=== PATIENT | female | born 1995 | race Caucasian/White ===

== ENCOUNTER 2024-04-20 07:09 | Outpatient (CLI) | payer OTHER, SELFPAY ==
--- NOTE | 2024-04-20 07:15 | CRLHL7_ITS ---
For Patients: As a result of the Century Cures Act, medical imaging exams and procedure reports are released immediately into your electronic medical record. You may view this report before your referring provider. If you have questions, please contact your health care provider. INDICATION: Dating and viability. TECHNIQUE: Ultrasound OB pelvis transabdominal and transvaginal. Real-time rodriguez-scale imaging of the pelvis was performed. COMPARISON: None. FINDINGS: There is a single intrauterine gestation. The embryo demonstrates a regular cardiac rate measuring 161 beats per minute. The embryo`s crown rump length measurement of 1.6 cm corresponds to a gestational age of 8 weeks 0 days with a sonographic due date of 11/30/2024. There is a normal appearing yolk sac. There are no gross abnormalities noted within the embryo at this early state of development. The placenta has not yet developed. There is no sign of perigestational hemorrhage. The ovaries are of normal size. There are no suspicious fluid collections noted in the cul-de-sac. IMPRESSION: Single viable intrauterine with gestational age of 8 weeks 0 days. No abnormalities seen. Dictated by Edenilson Palacios MD @ 04/20/2024 12:53:15 PM (Electronically Signed)
== END 2024-04-20 07:10 | disposition home or self-care (01) ==
PROVIDERS: Visit Provider Registered Nurse
DX: Z34.91 Encounter for supervision of normal pregnancy, unspecified, first trimester (principal); Z3A.08 8 weeks gestation of pregnancy
CPT/HCPCS: 76817

== ENCOUNTER 2024-04-20 08:07 | Outpatient (CLI) | payer OTHER, SELFPAY ==
[2024-04-20 12:59] LABS: Chlamydia DNA Amplified* NOT DETECTED (No Detected); GC DNA Amplified* NOT DETECTED (No Detected)
== END 2024-04-20 08:08 | disposition home or self-care (01) ==
PROVIDERS: Visit Provider Registered Nurse
DX: Z34.91 Encounter for supervision of normal pregnancy, unspecified, first trimester (principal); O16.1 Unspecified maternal hypertension, first trimester; Z3A.08 8 weeks gestation of pregnancy
CPT/HCPCS: 82565; 82570; 84156; 84439; 84443; 84450; 84460; 84520; 86592; 86703; 86704; 86706; 86762; 86787; 86803; 86850; 86900; 86901; 87086; 87340; 87491; 87591

== ENCOUNTER 2024-04-24 06:45 | Outpatient (CLI) | payer OTHER, SELFPAY | END 2024-04-24 06:46 | disposition home or self-care (01) | LOC: NFLDREF 04-26 13:37 | PROVIDERS: Visit Provider Registered Nurse | DX: Z34.91 Encounter for supervision of normal pregnancy, unspecified, first trimester (principal); Z3A.08 8 weeks gestation of pregnancy | CPT/HCPCS: 82570; 84156 ==

== ENCOUNTER 2024-06-19 13:58 | Outpatient (CLI) | payer OTHER, SELFPAY | END 2024-06-19 13:59 | disposition home or self-care (01) | PROVIDERS: PCP Obstetrics & Gynecology; Visit Provider Obstetrics & Gynecology | DX: O99.282 Endocrine, nutritional and metabolic diseases complicating pregnancy, second trimester (principal); E05.00 Thyrotoxicosis with diffuse goiter without thyrotoxic crisis or storm | CPT/HCPCS: 84439; 84443; 84445; 84481 ==

== ENCOUNTER 2024-09-10 13:52 | Outpatient (CLI) | payer OTHER, SELFPAY ==
--- NOTE | 2024-09-10 14:00 | CRLHL7_ITS ---
For Patients: As a result of the Cures Act, medical imaging exams and procedure reports are released immediately into your electronic medical record. You may view this report before your referring provider. If you have questions, please contact your health care provider. OB ULTRASOUND FOLLOW-UP LIMITED, 09/10/2024 CLINICAL HISTORY: Thyrotoxicosis. TECHNIQUE: OB ultrasound performed transabdominally . COMPARISON: 07/25/2024, 07/03/2024. FINDINGS: LINDA by US: 11/30/2024. GA: 28 weeks 3 days. Gestation: Single. Cervix: Not visualized. Positioning: Breech. Amniotic Fluid: 4.0 cm SDP. Placenta: Technique: TA. Placenta Position: Anterior. Dopplers: Heart Rate: 149 bpm. BIOMETRY: BDP: 6.8 cm, 27 weeks 4 days. 13% HC: 26.0 cm, 28 weeks 2 days. 16% AC: 23.9 cm, 28 weeks 2 days. 36% FL: 5.1 cm, 27 weeks 2 days. 10% FL/AC Ratio: 21.26% HC/AC Ratio: 1.09. EFW: 1139 grams, 2 lb 8 oz. Age by this US: 27 weeks 6 days. LINDA by this US: 12/04/2024. Percentile by LINDA: 19% IMPRESSION: Single live intrauterine gestation at 27 weeks 6 days. LINDA 12/04/2024. Estimated weight 1139 grams which lies at the 19th percentile. Angella Najera M.D. Diagnostic/Breast Radiologist [email or web address] Transcribed: 1:39 pm DW/Dictated by: Angella Najera MD @ 09/11/2024 1:21:00 PM (Electronically Signed)
== END 2024-09-10 13:53 | disposition home or self-care (01) ==
LOC: US 13:53
PROVIDERS: Visit Provider Obstetrics & Gynecology
DX: O99.283 Endocrine, nutritional and metabolic diseases complicating pregnancy, third trimester (principal); E05.00 Thyrotoxicosis with diffuse goiter without thyrotoxic crisis or storm; Z3A.28 28 weeks gestation of pregnancy
CPT/HCPCS: 76816; 84443; 86592

== ENCOUNTER 2024-09-10 14:22 | Outpatient (CLI) | payer OTHER, SELFPAY | END 2024-09-10 14:23 | disposition home or self-care (01) | PROVIDERS: Visit Provider Obstetrics & Gynecology | DX: Z34.03 Encounter for supervision of normal first pregnancy, third trimester (principal) | CPT/HCPCS: 84443; 86592 ==

== ENCOUNTER 2024-09-14 08:00 | Outpatient (CLI) | payer OTHER, SELFPAY | END 2024-09-14 08:01 | disposition home or self-care (01) | PROVIDERS: Visit Provider Obstetrics & Gynecology | DX: Z34.03 Encounter for supervision of normal first pregnancy, third trimester (principal); E05.00 Thyrotoxicosis with diffuse goiter without thyrotoxic crisis or storm | CPT/HCPCS: 82951; 82952; 84439; 84443; 84481 ==

== ENCOUNTER 2024-10-22 07:09 | Outpatient (CLI) | payer OTHER, SELFPAY ==
--- NOTE | 2024-10-22 07:15 | CRLHL7_ITS ---
For Patients: As a result of the Cures Act, medical imaging exams and procedure reports are released immediately into your electronic medical record. You may view this report before your referring provider. If you have questions, please contact your health care provider. OB ULTRASOUND LINDA by LMP: 11/30/2024. GA: 34 w, 3 d. Single. Comparison: 09/10/2024, 07/25/2024, 07/03/2024. INDICATION: Thyrotoxicosis. TECHNIQUE: Real time grayscale imaging of the fetus was performed. Transabdominal. CERVIX: Not visualized. POSITIONING: Vertex. AMNIOTIC FLUID: 5.9 cm. SDP (N: greater than 2 x 1 cm) PLACENTA: Technique: Transabdominal. PLACENTA POSITION: Anterior. DOPPLER: heart rate: 133 bpm. BIOMETRY: BPD: 8.4 cm. 33 w, 6 d, 31 percent. HC: 31 cm. 34 w, 5 d, 21 percent. AC: 30 cm. 34 w, 0 d, 42 percent. FL: 6.5 cm. 33 w, 2 d, 16 percent. FL/AC ratio: 21.5 percent. HC/AC ratio: 1.03. EFW: 2294 g. Weight: 5 lbs, 1 oz. age by this US: 34 w, 0 d. LINDA by this US: 12/03/2024. Percentile by LINDA: 29 percent. IMPRESSION: 1. Sonographic gestational age 34 weeks 0 days and sonographic due date 12/03/2024. Good correlation with dates. Normal interval growth. 2. Estimated weight 29th percentile. Abdominal circumference 42nd percentile. Jose Wyatt M.D. Diagnostic Radiologist [email or web address] LILLIAN/sven machuca/Dictated by: Jose Wyatt MD @ 10/22/2024 10:26:00 AM (Electronically Signed)
== END 2024-10-22 07:10 | disposition home or self-care (01) ==
LOC: US 07:10
PROVIDERS: Visit Provider Obstetrics & Gynecology
DX: O99.283 Endocrine, nutritional and metabolic diseases complicating pregnancy, third trimester (principal); E05.00 Thyrotoxicosis with diffuse goiter without thyrotoxic crisis or storm; Z3A.34 34 weeks gestation of pregnancy
CPT/HCPCS: 76816

== ENCOUNTER 2024-11-06 15:08 | Outpatient (CLI) | payer OTHER, SELFPAY ==
[2024-11-07 14:56] LABS: Strep B DNA Probe POSITIVE (Negative)
[2024-11-07 17:45] LABS: Strep B Susceptibility Needed? No
== END 2024-11-06 15:09 | disposition home or self-care (01) ==
LOC: NFLDREF 15:09
PROVIDERS: Visit Provider Obstetrics & Gynecology
DX: Z34.03 Encounter for supervision of normal first pregnancy, third trimester (principal)
CPT/HCPCS: 87081; 87653

== ENCOUNTER 2024-11-13 09:09 | Outpatient (CLI) | payer OTHER, SELFPAY | END 2024-11-13 09:10 | disposition home or self-care (01) | LOC: NFLDREF 09:10 | PROVIDERS: Visit Provider Obstetrics & Gynecology | DX: E05.00 Thyrotoxicosis with diffuse goiter without thyrotoxic crisis or storm (principal) | CPT/HCPCS: 84443 ==

== ENCOUNTER 2024-12-03 13:29 | Inpatient (IN) | payer OTHER, SELFPAY ==
[2024-12-03] VITALS (23 sets, daily range): BP systolic 116–158; BP diastolic 56–94; PULSE 54–80; RESP 16–20; TEMP 36.4–37; O2SAT 98–100; BMI 29.2
[2024-12-03 14:18] LABS: Hematocrit 40.2 % (33.0-51.0); Hemoglobin* 13.7 gm/dL (12.0-16.0); Mean Corpuscular HGB Conc 34 gm/dL (32-36); Mean Corpuscular Hemoglobin 33 pg (26-34); Mean Corpuscular Volume 98 fL (80-100); Platelet Count* 203 K/uL (140-440); Red Blood Count 4.12 m/uL (4.00-5.20); White Blood Count* 8.67 K/uL (4.50-11.00)
[2024-12-03 14:34] LABS: Slide Review Reflex No
[2024-12-03 14:38] LABS: Alanine Aminotransferase* 20 U/L (4-35); Aspartate Amino Transferase* 39 U/L (12-35); Blood Urea Nitrogen* 15 mg/dL (5-24); Creatinine* 0.6 mg/dL (0.5-1.5); Est. Creatinine Clearance* 124.49; Estimated Glomerular Filt Rate 125 ml/min
[2024-12-03 15:38] LABS: Total Protein Urine 15 mg/dL
[2024-12-03 15:39] LABS: Creatinine Urine 21.1 mg/dL; Protein Creatinine Ratio Urine 0.71 (0-0.19)
--- NOTE | 2024-12-03 17:20 | W.PM.LDBA ---
Subjective History of Present Illness Time Seen by Provider: 17:20 Date Seen: 12/03/24 Narrative: Patient is being admitted to Labor and Delivery for induction due to mild ranging blood pressure in clinic today. She is a 29 year old at 40.3 weeks gestation. Her full history and physical was dictated by Dr. Lomeli on 11/13/24. Please see this for details. Discussed with Swapna that she has CHTN given BP at her first few visits where her BP were in the 130s/70s or even mild ranging. Additionally, she has baseline proteinuria. Total protein 432 mg on 04/24/24. Total she has BP persistently 140-150s/80-90s. PreE labs 12/03/24: Hgb 13.7, Plt 203, Cr 0.6, AST 39, ALT 20. Denies any persistent headache, vision changes, SOB, right upper quadrant/epigastric pain, or rapidly expanding edema. Specific Issues/Plans G 1 P 0 Partner: Zach. Baby: [place] H&P 11/13/[address] 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 Overtreated and went into remission. On no meds since 2021; previously on methimazole TSH & T4 normal at first OB 09/10/24: TSH 0.468, FT4 0.86 Recommend daily low dose aspirin at 12 weeks 06/19/2024: Thyroid stimulating IgG < 0.10 (</= 0.54) Has an MFM consult and level 2 US 07/03/24 USN's for EFW at 28 and 34 weeks, increase to Q4wk if hyperthyroidism is uncontrolled. TSH 11/13/2024: 0.536 # 09/10/24 Elevated 1hr GTT: 152 3hr GTT: F 85; 1hr 151, 2hr 106, 3hr 80: All normal = no GDM. #History depression and anxiety. Lexapro 10mg discontinued summer 2023. Currently stable. #Idiopathic arthritis as child. No medications since childhood. #Elevated BP x2 at first OB visit. Advised patient to check BP 2-3 times over next 2 weeks. If elevated, she is to call and schedule a nurse visit for a BP check. baseline pre E labs: Normal BUN, Creat, AST, ALT, P/C: 2.13 24 hour urine 04/24/24: P/C: 0.27, total protein 432mg Discussed elevated protein on 24 urine on 05/23/2024: declined nephrology referred, will continue to monitor BP at home. 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 Plans for booster Imagin07/03/2024 LVL 2: Vtx, anterior placenta. No previa. 3 vessel cord. EFW 39%. Suboptimal views of lips, diaphragm, ductal and aortic arch, cervix, abdominal wall cord insertion. Return to [facility] in 3 weeks to reassess suboptimally viewed structures. F/U: Breech, ant placenta w/o previa, placental wall. SDP 4.6cm. EFW 31%. All suboptimally viewed structures previously were identified and appeared normal. 09/10/24 Growth: Breech, SDP 4.0 cm, EFW 1139 g, 2 lb 8 oz, 19%. BPD 13%, HC 16%, AC 36%, FL 10%. 10/22/2024: Growth: Vertex, SDP 5.9 cm, EFW 2294 g, 5 lb 1 oz, 29%. BPD 31%, HC 21%, AC 42%, FL 16% Flu: completed Covid: completed and up to date Tdap: 09/24/24 RSV: N/A 32wk PHQ/JEANA: 34wk Hgb: 12.2 36wk GBS: positive OB - Problem Based A/P Additional Plan (1) Pre-eclampsia superimposed on chronic hypertension: Status: Acute Plan: - PreE labs 12/03/24: Hgb 13.7, Plt 203, Cr 0.6, AST 39, ALT 20. P/C ratio 0.71 - Will start Nifidipine ER 30 mg QD - Will continue to monitor via Pre-E protocol (2) Graves disease: Problem details: in spontaneous remission Status: Acute (3) Anxiety: Status: Acute Plan Induction - SVE 50/-2, moderately soft, mid position - Alamillo irregular contractions - Pain management plan: Open to epidural but not set. - Cook cath placed at 1715. 60cc/60cc. Patient tolerated procedure well. - She is very constipated. Will start miralax and senna Wellbeing NST: Baseline 120 beats per minute, moderate variability, positive acceleration, negative deceleration. Cat 1 Alamillo: Irregular OB Exam Physical Exam Vital signs: Temp Pulse Resp BP Pulse Ox 98.2 F 80 16 144/83 H 100 12/03/24 13:36 12/03/24 16:01 12/03/24 13:36 12/03/24 16:01 12/03/24 13:35 Narrative: Physical exam: General: No acute distress Psych: Alert and oriented x3, full affect HEENT: Normocephalic, atraumatic Lungs: Unlabored breathing Neuro: No focal deficit. Mentating appropriately Pelvic exam: Dry perineum. 50/2, moderately soft, mid position
[2024-12-03] MEDS: polyethylene glycoL 3350 17 GM PACK PO (17:56)
[2024-12-03] MEDS: NIFEdipine ER 30 MG TAB PO (18:19)
[2024-12-03] MEDS: SENNOSIDES 1 TAB TABLET PO (20:59)
[2024-12-04] VITALS (66 sets, daily range): BP systolic 95–156; BP diastolic 41–88; PULSE 50–107; RESP 14–18; TEMP 36.4–36.8; O2SAT 80–100
[2024-12-04] MEDS: LACTATED RINGERS 1000 ML 1,000 ML 124 ML IV (00:06)
[2024-12-04] MEDS: OXYTOCIN 30 unit/500 ML in NS 30 UNIT/500 ML BAG IVPB (00:07)
[2024-12-04] MEDS: AMPICILLIN 2 GM in 0.9 % SODIUM CHLORIDE Mini-bag 100 ML IVPB (05:20)
--- NOTE | 2024-12-04 07:37 | PM.OBPNL ---
Subjective Time Seen by Provider: 07:18 Date Seen: 12/04/24 Narrative: The patient is up on the birthing ball this morning. She states that her sleep was not great overnight. While the Cook catheter was in, she felt some mild cramping. Over the last hour, she states that she is starting to become more aware of contractions. Membranes are still intact. Cook catheter came out at 5:47 a.m. this morning. Objective Exam: General appearance: Alert, cooperative white female in no acute distress Abdomen: Gravid, nontender Extremities: No significant edema Vital Signs: Last Vital Signs Temp 97.8 F 12/04/24 07:01 Pulse 54 L 12/04/24 07:04 Resp 16 12/04/24 07:01 BP 144/85 H 12/04/24 07:04 Pulse Ox 99 12/04/24 07:01 Comments: BP stable, 110-144/56-85 since midnight. Pelvic Exam Dilation (cm): 3 Effacement (%): 75 Station: -1 Comments: Cervical examination per RN at 5:47 a.m. one Cook catheter was removed. Contractions Monitor mode: External Contraction Frequency: q2-3 min Contraction pattern: Regular Contraction intensity: Mild Pitocin Rate (mU/min): 24 Assessment Assessment: induction ongoing Status: Category l Heart Rate Baseline: 135 Residential Variability: Moderate (6-25) Monitor Accelerations: Present Monitor Decelerations: None Plan Plan: Discussed management options. Offered amniotomy to help speed the time to active labor. Patient would prefer to wait for now, and explore different positions and maintain mobility in order to help labor progress. Will reassess in couple of hours. Continue Pitocin infusion.
[2024-12-04] MEDS: LACTATED RINGERS 1000 ML 1,000 ML 101 ML IV ×2 (09:07→20:34)
[2024-12-04] MEDS: AMPICILLIN 1 GM in 0.9 % SODIUM CHLORIDE Mini-bag 100 ML IVPB ×4 (09:07→21:46)
[2024-12-04] MEDS: SENNOSIDES 1 TAB TABLET PO (09:11)
[2024-12-04] MEDS: NIFEdipine ER 30 MG TAB PO (09:24)
--- NOTE | 2024-12-04 10:25 | P.OBPN_ITS ---
Subjective Date Seen: 12/04/24 Narrative: Patient is comfortable. Contraction intensity is mild, and the patient states at times she isn't aware of contractions due to distraction. She has been working on positioning and movement to help labor progress. Objective Exam: General appearance: Alert, cooperative white female in no acute distress Abdomen: Soft, gravid, nontender Vital Signs: Last Vital Signs Temp 98 F 12/04/24 08:22 Pulse 63 12/04/24 09:54 Resp 16 12/04/24 07:01 BP 137/76 12/04/24 09:54 Pulse Ox 99 12/04/24 07:01 Pelvic Exam Dilation (cm): 2.5 Effacement (%): 80 Station: -1 Contractions Monitor mode: External Contraction Frequency: q1-3 minutes Contraction pattern: Irregular Contraction intensity: Mild Pitocin Rate (mU/min): 24 Assessment Assessment: induction ongoing Status: Category l Heart Rate Baseline: 135 Monitor Accelerations: Present Monitor Decelerations: None Plan Plan: Amniotomy attempted, no fluid noted, though I suspect a small hole was made in the bag of westfall. Will continue maternal positioning and IV Pitocin, increas ing as needed until active labor.
--- NOTE | 2024-12-04 15:26 | P.OBPN_ITS ---
Subjective Time Seen by Provider: 14:45 Date Seen: 12/04/24 Narrative: Patient was walking in halls. No increase in contraction intensity since last evaluation. Objective Vital Signs: Last Vital Signs Temp 97.8 F 12/04/24 13:30 Pulse 66 12/04/24 14:08 Resp 16 12/04/24 07:01 BP 135/79 12/04/24 14:08 Pulse Ox 99 12/04/24 07:01 Pelvic Exam Dilation (cm): 2.5 Effacement (%): 80 Station: -1 Comments: Unchanged Contractions Monitor mode: External Contraction pattern: Irregular Contraction intensity: Mild Pitocin Rate (mU/min): 27 Assessment Assessment: induction ongoing Amniotic Membrane Status: AROM (@1448. Unable to place IUPC as I was unable to palpate the membrane rupture site to confirm intra-amniotic placement of catheter.) Status: Category l Heart Rate Baseline: 135 Yard Supervisor Cotton Gin Variability: Moderate (6-25) Monitor Accelerations: Present Monitor Decelerations: None Plan Plan: Amniotomy performed at 1448 under analgesia with nitrous oxide gas, clear fluid mixed with bloody show noted. Continue present management. Reassess in 1-2 hours, if no progress, consider IUPC.
[2024-12-04] MEDS: ROPIVACAINE 0.2% 100 ml 100 ML 12 MG EPIDURAL (21:54)
[2024-12-04] MEDS: LIDOCAINE 2% (PF) 5 ML VIAL EPIDURAL (21:55)
[2024-12-04] MEDS: PHENYLEPHRINE 100 MCG/ML SYRINGE IVP ×2 (21:56→23:06)
--- NOTE | 2024-12-04 22:08 | PM.ANBPRC ---
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, unspecified site (ICD-10) Acne ?L70.9 - Acne, unspecified (ICD-10) Thyroid nodule ?E04.1 - Nontoxic single thyroid nodule (ICD-10) Surgical History (Updated 11/13/24 @ 09:19 by Shwetha Lomeli MD) H/O wisdom tooth extraction ?K08.409 - Partial loss of teeth, unspecified cause, unspecified class (ICD-10) Family History Other COPD (chronic obstructive pulmonary disease) Family history of rheumatoid arthritis Heart disease High blood pressure High cholesterol Osteoporosis Pancreatic cancer Social History (Updated 11/13/24 @ 09:20 by Shwetha Lomeli MD) 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 What is your current living situation?: I presently have a place to live Problems where you live: no known problems In the past 12 months, utilities in danger of being shut off: no In past 12 months, lack of transportation kept you from medical appts, meetings, work, or getting things needed for daily living: no In the past 12 mos, have been you worried that your food would run out before you had money to buy more?: never true In the past 12 mos, the food you bought just didn't last and you didn't have money to buy more?: never true Smoking Status: Never smoker How often does anyone, including family, friends and others, physically hurt you: never How often does anyone, including family, friends and others, insult or talk down to you: never How often does anyone, including family, friends and others, threaten you with harm: never How often does anyone, including family, friends and others, scream or curse at you: never Meds Home Medications and Allergies Home Medications ?Medication ?Instructions ?Recorded ?Confirmed ?Type acetaminophen 500 mg capsule 1,000 mg PO Q6H PRN 04/20/24 12/03/24 History cholecalciferol (vitamin D3) 10 10 mcg PO QDAY 04/20/24 12/03/24 History mcg (400 unit) capsule docosahexaenoic acid 200 mg 200 mg PO DAILY 04/20/24 12/03/24 History capsule ( DHA) docusate sodium 100 mg capsule 100 mg PO QDAY 05/18/24 12/03/24 History aspirin 81 mg capsule 81 mg PO QDAY 05/23/24 12/03/24 History azelaic acid 15 % topical gel 1 applic topical QHS 08/13/24 12/03/24 History clindamycin phosphate 1 % topical 1 applic topical QAM 08/13/24 12/03/24 History gel polyethylene glycol 3350 17 4 g PO DAILY 12/03/24 12/03/24 History gram/dose oral powder (ClearLax) Allergies Allergy/AdvReac Type Severity Reaction Status Date / Time No Known Drug Allergies Allergy Verified 12/03/24 13:42 Results Vital Signs Vital Signs: Last Vital Signs Temp 97.6 F 12/04/24 20:15 Pulse 73 12/04/24 22:01 Resp 18 12/04/24 20:15 BP 142/69 H 12/04/24 22:01 Pulse Ox 99 12/04/24 22:05 Weight: 81.148 kg Height: 166.37 cm Anesthesia Procedures Epidural Insertion Patient Location: OB Start Time: 21:30 Stop Time: 22:30 Start Date: 12/04/24 Stop Date: 12/04/24 Reason for Block: procedure for pain Patient Position: sitting Performed By: Rogerio Troncoso Preanesthetic Checklist: IV checked, risks and benefits discussed, monitors and equipment checked, pre-op evaluation, timeout performed and anesthesia consent Prep: chlorhexidine gluconate Monitoring: blood pressure monitoring, continuous pulse oximetry and heart rate Approach: midline Vertebral Space: lumbar (1-5) Epidural Technique: FRANCISCO saline Needle Type: Tuohy needle Injection Technique: continuous catheter Needle gauge: 17 Needle Length (cm): 10 cm Needle Insertion Depth (cm): 8 Catheter Gauge: 19 Catheter Type: multi-orifice Catheter at skin depth (cm): 15 Test Dose Result: negative and lidocaine 1.5% with epinephrine 1 to 200,000
[2024-12-04] MEDS: LACTATED RINGERS 1000 ML 1,000 ML 1200 ML IV (22:16)
[2024-12-04] MEDS: ePHEDrine sulfate 5 MG/ML inj 10 MG IVP (23:51)
[2024-12-05] VITALS (71 sets, daily range): BP systolic 96–181; BP diastolic 45–82; PULSE 53–107; RESP 16–18; TEMP 36.4–36.9; O2SAT 96–99
[2024-12-05] MEDS: LACTATED RINGERS 1000 ML 1,000 ML 500 ML IV (01:01)
[2024-12-05] MEDS: AMPICILLIN 1 GM in 0.9 % SODIUM CHLORIDE Mini-bag 100 ML IVPB ×2 (01:43→05:57)
[2024-12-05] MEDS: OXYTOCIN 30 unit/500 ML in NS 30 UNIT/500 ML BAG 4 UNIT IVPB (02:30)
[2024-12-05] MEDS: PHENYLEPHRINE 100 MCG/ML SYRINGE IVP ×2 (02:50→08:12)
[2024-12-05] MEDS: ePHEDrine sulfate 5 MG/ML inj 10 MG IVP (03:53)
[2024-12-05] MEDS: ROPIVACAINE 0.2% 100 ml 100 ML 12 MG EPIDURAL (05:55)
[2024-12-05] MEDS: LACTATED RINGERS 1000 ML 1,000 ML IV (06:47)
--- NOTE | 2024-12-05 07:02 | P.OBPN_ITS ---
Subjective Time Seen by Provider: 06:40 Date Seen: 12/05/24 Narrative: Patient is comfortable with epidural. Objective Vital Signs: Last Vital Signs Temp 97.9 F 12/05/24 06:08 Pulse 93 12/05/24 06:28 Resp 16 12/05/24 05:00 BP 128/69 12/05/24 06:28 Pulse Ox 99 12/04/24 22:30 Pelvic Exam Dilation (cm): 5 Effacement (%): 100 Station: 0 Comments: Suspect OP asynclitic position Contractions Monitor mode: External Contraction pattern: Irregular Contraction intensity: Strong/Firm Pitocin Rate (mU/min): 6 Assessment Assessment: induction ongoing Amniotic Membrane Status: AROM (@1448. 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 discussed possibility of section if we cannot get baby to rotate and contractions to be strong enough. Signed out to Dr. Partida.
--- NOTE | 2024-12-05 08:57 | PM.OBPNL ---
Subjective Time Seen by Provider: 08:48 Date Seen: 12/05/24 Narrative: Felisha is a 29-year-old at 40 weeks 5 days ongoing induction of labor in the setting of likely chronic hypertension with superimposed preeclampsia without severe features. was otherwise complicated by dyslipidemia, history of Graves disease and anxiety. Patient was admitted for induction on 12/03/2024 given the new diagnosis of superimposed preeclampsia without severe features. She was not managed as chronic hypertension not on medications antenatally, but this is felt to be the most accurate diagnosis when looking back on her vitals. Regardless, induction has included Cook catheter, Pitocin and amniotomy at 1446 yesterday. Despite this, she has made very slow progress a bili in phase of labor. Beginning around 0 600 this morning, she has had a intermittent category 2 heart rate tracing where her Pitocin reducing then ultimately discontinued. As of 08 this morning, her Pitocin has been turned off x2 for nonreassuring heart tones. In addition, she is now greater than 24 hours from initiation of Pitocin and 18 hours from amniotomy. Recommend we complete a cervical exam in order to assess next steps for labor management. Explained if she has not achieved active labor, my recommendation would change to proceed with a primary delivery. She expressed understanding and is agreeable to exam. She is comfortable with epidural in place, currently in hands and knees position. Objective Exam: General: Alert and oriented, no acute distress Psych: Appropriate mood and affect Abdomen: Gravid. Last Ultrasound for EFW was 10/22/2024 where EFW was 29th percentile Cervix: 4.5/90/0, anterior cervical margin is noted to feel edematous. Suspected malposition, though I cannot definitively identify the position given significant caput. heart rate: Category 1 at present. Baseline is 120 beats per minute, moderate variability, 15 x 15 accelerations seen. No decelerations at this time. Within the last hour, she was having recurrent late decelerations prompting discontinuation of Pitocin. IUPC: Bryant about every 10 minutes. Vital Signs: Last Vital Signs Temp 97.7 F 12/05/24 07:08 Pulse 74 12/05/24 08:29 Resp 16 12/05/24 07:08 BP 135/65 12/05/24 08:29 Pulse Ox 99 06/17/25 22:30 Pelvic Exam Dilation (cm): 5 Effacement (%): 100 Station: 0 Contractions Monitor mode: External Contraction pattern: Irregular Contraction intensity: Strong/Firm Pitocin Rate (mU/min): 6 Assessment Amniotic Membrane Status: AROM (@1448. Unable to place IUPC as I was unable to palpate the membrane rupture site to confirm intra-amniotic placement of catheter.) Status: Category ll Heart Rate Baseline: 120 Monitor Accelerations: Present Monitor Decelerations: Variable Plan Plan: Felisha is a 29-year-old at 40 weeks 5 days ongoing induction of labor in the setting of likely chronic hypertension with superimposed preeclampsia without severe features. was otherwise complicated by dyslipidemia, history of Graves disease and anxiety. Unfortunately, patient has met criteria for failed induction of labor. She is status post Cook catheter, greater than 24 hours on Pitocin greater than 18 hours from AROM. Cervix feels 4.5/90/0, with cervical edema noted especially anteriorly. I am suspicious for malposition, but I cannot definitively identify the position due to her degree of cervical dilation and significant caput. In addition, we have had an intermittent category 2 heart rate tracing with recurrent late decelerations that has prompted discontinuation of Pitocin x2. Recommend we proceed with primary delivery at this time. Explained the risks and benefits of the procedure in detail, including risk of bleeding, infection, damage to surrounding structures. With regard to bleeding, I explained she is at an increased risk of hemorrhage in the need for blood transfusion in the setting of a intrapartum and prolonged induction. She has a medical candidate for TXA or Hemabate if needed, will try to avoid Methergine in the setting of preeclampsia without severe features. Discussed potential surgical interventions that could be required if severe bleeding occurs. Patient would be agreeable to a blood transfusion if needed. She has active type and screen on file. For infection, will recommend we proceed with Ancef and azithromycin in the setting of an intrapartum . Discussed risk of damage to surrounding structures including the uterus, tubes, ovaries, bowel, bladder, blood vessels, baby. All questions answered. After discussion, written consent for primary delivery and proceed as indicated was obtained. - Proceed with primary delivery - Perioperative Ancef and azithromycin - Blood type A positive, active type and screen on file - GBS positive, status post adequate treatment with ampicillin - Pediatrics to attend delivery in the setting of unscheduled
[2024-12-05] MEDS: AZITHROMYCIN 500 MG in 0.9 % SODIUM CHLORIDE 250 ml 250 ML 255 MG IVPB (09:05)
[2024-12-05] MEDS: CEFAZOLIN 1 GM inj 2 GM IVP (09:30)
[2024-12-05] MEDS: KETOROLAC 30 MG/ML inj IVP ×3 (10:06→22:24)
--- NOTE | 2024-12-05 10:09 | P.ANES_ITS ---
Anesthesia Charges Start Date/Time Anesthesia Start Date: 12/05/24 Anesthesia Start Time: 09:20 Stop Date/Time Anesthesia Stop Date: 12/05/24 Anesthesia Stop Time: 10:38 Summary Emergency: [facility] Coding CPT Codes CPT Codes: ANES/ANALG CS DELIVER ADD-ON - 01111 ([id number]) P3 - PATIENT W/SEVERE SYS DISEASE, QK - TEAM MEMBER 2-4 CNCRNT ANES PROC, QX - SAFETY CONSULTANT SVC W/ MD MED DIRECTION Additional Codes: Summary - Emergency: [facility] ([id number])
--- NOTE | 2024-12-05 10:09 | W.ANESCHARGE ---
Anesthesia Charges Start Date/Time Anesthesia Start Date: 12/05/24 Anesthesia Start Time: 09:20 Stop Date/Time Anesthesia Stop Date: 12/05/24 Anesthesia Stop Time: 10:38 Summary Emergency: [facility]IM Coding CPT Codes CPT Codes: ANES/ANALG CS DELIVER ADD-ON - 49046 ([id number]) P3 - PATIENT W/SEVERE SYS DISEASE, QK - ASSISTANT PROFESSOR OF GERMAN 2-4 CNCRNT ANES PROC, QX - INJECTION SPECIALIST SVC W/ MD MED DIRECTION Additional Codes: Summary - Emergency: [facility]IM ([id number])
--- NOTE | 2024-12-05 10:15 | P.OBPRC_ITS ---
Procedure Time Seen by Provider: 10:15 Date of procedure: 12/05/24 Pre-op diagnosis: Failed induction of labor, superimposed preeclampsia without severe features, anxiety, history of Grave's disease Procedure Done: Global Will [facility] bill your pro fee for this procedure?: Yes Blood Loss Measurement Type: QBL (350) Bakri Used: No IV fluids (mL): 1,000 Urine Output (mL): 300 Urine Output Comment: Clear, yellow Surgeon: Maria Fernanda Partida MD Anesthesia Type: Epidural Findings: Liveborn female fetus Unremarkable uterus, fallopian tubes and ovaries Procedure Name: Primary delivery Procedure Description: Patient was taken to the operating room with IV running. She received cefazolin and azithromycin in preoperative prophylaxis. Epidural anesthesia was previously administered and bolused. Perez catheter was previously inserted. She was prepped and draped in the usual sterile fashion. Anesthesia was tested and found to be adequate. A low-transverse skin incision was made with a scalpel and carried through to the underlying layer of fascia with the scalpel. The subcutaneous fat was dissected off the underlying fascia with Bovie and blunt dissection. The fascia was nicked in the midline with a scalpel, and this incision was extended laterally with scissors. The rectus muscles were in the midline. Peritoneum was identified and entered bluntly. Bovie was used to widen this opening laterally. Cristi O retractor was inserted and tightened down, providing excellent visualization of the lower uterine segment. The bladder reflection was found to be advanced along the lower uterine segment. A bladder flap was created with a combination of sharp and blunt dissection. Low-transverse uterine incision was made with a scalpel. Incision was widened bluntly. The infant's head was grasped through the hysterotomy in LOP position and elevated to the hysterotomy. The remainder of the body delivered without incident with the help of fundal pressure. Nuchal cord was noted, loose and reduced. Cord was clamped and cut after 30 seconds. was handed off to attending nurses and ELECTROPLATING SALES REPRESENTATIVE. The placenta was delivered with gentle traction on the cord. The uterus was cleaned of all clots and debris with the dry lap pad. IV pitocin was administered. The hysterotomy was reapproximated with 0 Vicryl in a running, locked fashion. Second layer of the same suture was used in imbricating fashion to obtain hemostasis. Excellent uterine tone was noted. The adnexa were examined and noted to be normal in appearance. The cul-de-sac and gutters were cleansed with dampened laparotomy sponge, removing any further clots and debris. The Cristi O retractor was removed. The hysterotomy was reexamined and found to be hemostatic. The rectus muscles were examined and found to be hemostatic. The fascia was reapproximated with 0 Vicryl in a running fashion. Subcutaneous fat was irrigated and Bovie used on oozing vessels. The subcutaneous fat did not require closure. The skin was closed with a subcuticular stitch of 3-0 monocryl. Surgical glue was applied above this. Patient tolerated procedure well was taken to recovery area in stable condition. Surgical debrief was completed. details: - Liveborn female fetus - weight: 3360g - APGARs were 8 and 9 at 1 and 5 minutes respectively Complications: None Pathology: specimen obtained, sent to pathology Surgery Debrief Performed: Yes Condition: stable
--- NOTE | 2024-12-05 10:23 | W.PM.NB ---
Nerve Block Nerve Block Time Seen by Provider: 10:20 Date Seen: 12/05/24 Type of block requested by surgeon for post-operative analgesia: TAP Side: bilateral Time out performed: Yes Verification of patient name: Yes Verification of date of : Yes Site marking: site marked Name of person performing procedure: Horacio Continuous monitoring Was continuous monitoring of O2 sat, B/P, rn cardiac rehab, recorded every 15 minutes?: Yes Procedure Checklist: sterile prep, needles and gloves Ultrasound guided. Images saved: Yes Medications given in 5ml increments after negative aspiration: Marcaine %: 0.25 mL: 30 Needle gauge: 20 and Exparel mL: 10 Patient tolerated procedure well: Yes Additional comments: Needle noted between internal oblique and transversus abdominus. Local spread visualized Block Charges Block Charge (with Pro Fee): TAP Bilateral Use of Ultrasound Machine for Block: Yes- US Guidance/pain block
--- NOTE | 2024-12-05 10:43 | P.ANES_ITS ---
Anesthesia Charges Start Date/Time Anesthesia Start Date: 12/05/24 Anesthesia Start Time: 09:20 Stop Date/Time Anesthesia Stop Date: 12/05/24 Anesthesia Stop Time: 10:38 Summary Emergency: VADIM Coding CPT Codes CPT Codes: ANES/ANALG CS DELIVER ADD-ON - 02221 ([id number]) P3 - PATIENT W/SEVERE SYS DISEASE, QK - COATER 2-4 CNCRNT ANES PROC, QX - SPORTS PSYCHOLOGIST SVC W/ MD MED DIRECTION Additional Codes: Summary - Emergency: VADIM ([id number])
--- NOTE | 2024-12-05 10:43 | W.ANESCHARGE ---
Anesthesia Charges Start Date/Time Anesthesia Start Date: 12/05/24 Anesthesia Start Time: 09:20 Stop Date/Time Anesthesia Stop Date: 12/05/24 Anesthesia Stop Time: 10:38 Summary Emergency: VADIM Coding CPT Codes CPT Codes: ANES/ANALG CS DELIVER ADD-ON - 12764 ([id number]) P3 - PATIENT W/SEVERE SYS DISEASE, QK - COMMERCIAL FOOD INSTRUCTOR 2-4 CNCRNT ANES PROC, QX - OIL MIXER SVC W/ MD MED DIRECTION Additional Codes: Summary - Emergency: VADIM ([id number])
[2024-12-05 15:16] LABS: Rapid Plasma Reagin (RPR) Non Reactive (Non Reactive)
[2024-12-06] VITALS (12 sets, daily range): BP systolic 108–131; BP diastolic 66–78; PULSE 56–96; RESP 16–18; TEMP 36.4–36.8; O2SAT 97–98
[2024-12-06] MEDS: KETOROLAC 30 MG/ML inj IVP ×3 (04:15→16:39)
[2024-12-06 06:13] LABS: Hemoglobin* 9.8 gm/dL (12.0-16.0)
[2024-12-06] MEDS: ACETAMINOPHEN 500 MG TABLET 1000 MG PO ×3 (06:53→19:53)
[2024-12-06] MEDS: DOCUSATE SODIUM 100 MG CAPSULE PO (10:30)
[2024-12-06] MEDS: IBUPROFEN 600 MG TABLET PO (23:30)
[2024-12-07] VITALS (7 sets, daily range): BP systolic 124–144; BP diastolic 70–87; PULSE 59–79; RESP 16–18; TEMP 36.4–36.8; O2SAT 97–98
[2024-12-07] MEDS: ACETAMINOPHEN 500 MG TABLET 1000 MG PO ×4 (02:08→23:00)
[2024-12-07] MEDS: IBUPROFEN 600 MG TABLET PO ×3 (05:05→17:07)
[2024-12-07] MEDS: DOCUSATE SODIUM 100 MG CAPSULE PO (08:36)
[2024-12-07] MEDS: FERROUS SULFATE 325 MG TABLET PO (08:36)
--- NOTE | 2024-12-07 11:46 | PM.OBDSVD1 ---
DS: Providers Provider Date Seen: 12/07/24 Date of admission: 12/03/24 13:29 Primary care physician: Not a Local Provider Admitting Clinician: Janette Garcia MD Attending Physician on discharge: Jany Dong CNM Date of Discharge: 12/07/24 DS: Diagnosis Discharge Diagnosis (1) care and examination of lactating mother: Status: Acute Exam Narrative: Exam Narrative: VSS. ?AfebrileGENERAL APPEARANCE: ?normal affect, alert, no distress MOOD: ?appropriate HEENT: normocephalic, neck supple, full ROM CHEST: ?Symmetrical chest wall movement. ?Normal respiratory effort. ?Clear to auscultation HEART: ?regular rate and rhythm ABDOMEN: ?soft, non-tender. Uterine fundus is firm, [] Umbilicus, Midline and is appropriate for the stage of recovery. ?Bowel sounds present. EXTREMITIES: ?normal and [no] edemaSKIN: warm, dry. ?[Dressing on, clean/dry/intact] ?[Incision clean/dry/well approximated.] ?No signs of infection noted. Const: Vital Signs, click to edit/add: Vital Signs - 24 hr 12/06/24 13:40 12/06/24 17:15 12/06/24 19:51 Temperature 97.6 F 98.2 F 97.6 F Pulse Rate [Pulse Oximeter] 67 65 96 Respiratory Rate 16 16 18 Blood Pressure [Ri ght Arm] 124/72 118/73 126/73 Pulse Oximetry 98 98 Oxygen Delivery Me thod Room Air Room Air 12/06/24 23:21 12/07/24 05:00 12/07/24 08:27 Temperature 98.3 F 98.3 F 97.7 F Pulse Rate [Pulse Oximeter] 78 59 L 75 Respiratory Rate 16 18 17 Blood Pressure [Ri ght Arm] 131/78 134/70 137/80 Pulse Oximetry 97 98 98 Oxygen Delivery Me thod Room Air Room Air Room Air 12/07/24 11:12 Temperature Pulse Rate [Pulse Oximeter] Respiratory Rate Blood Pressure [Ri ght Arm] 144/82 H Pulse Oximetry Oxygen Delivery Me thod OB - DS: Summary Hospital Course Hospital Course: Felisha is a 29 y.o. who was admitted to L & D for induction of labor. ?She had an uncomplicated for failure to progress.?The patient feels well. ?The pain is well controlled with current medications. ?She has no new complaints. ?She is breast feeding and reports things are going well.? the patient has done well.? Vitals have been stable.? She has remained afebrile.? Has a good appetite, is tolerating a general diet. ?She is voiding without difficulty.? She is passing gas and has not had a bowel movement.? She is ambulating and denies any dizziness.? Has Small amount of rubra lochia. ?She is planning IUD for prevention. She is requesting discharge today. Peripartum Data Procedures: Procedures Operation Date: 12/05/24 09:30 Actual Procedure Side Surgeon p Section Not Applicable Shante Partida MD [place] Gender: Female Discharge Plan: Home Status at Discharge Functional status at discharge: independent ambulation Overall status at discharge: patient is progressing back to baseline Time Spent with Patient Time attestation: Total time spent providing and/or coordinating discharge services: Time spent: Less than 30 minutes Discharge Plan Discharge Date of Admission: 12/03/24 13:29 Attending Physician on Admission: Janette Garcia Primary Care Provider: Provider,Not a Local Discharge Medications: No Action docusate sodium 100 mg capsule 100 mg PO QDAY clindamycin phosphate 1 % gel 1 applic topical QAM azelaic acid 15 % gel 1 applic topical QHS DHA 200 mg capsule 200 mg PO DAILY acetaminophen 500 mg capsule 1,000 mg PO Q6H PRN cholecalciferol (vitamin D3) 10 mcg (400 unit) capsule 10 mcg PO QDAY aspirin 81 mg capsule 81 mg PO QDAY polyethylene glycol 3350 [ClearLax] 17 gram/dose powder 4 g PO DAILY Follow Up Appointments: Provider,Not a Local [Primary Care Provider, Family Practice]
--- NOTE | 2024-12-07 11:53 | PM.OBPNVD1 ---
OB - PN:Subj Subjective Date Seen: 12/07/24 Narrative: Felisha is a 29 y.o. who was admitted to L & D for induction of labor for CHTN and superimposed preeclampsia.? She had an uncomplicated primary .? ? The patient feels well.? The pain is well controlled with current medications.? She has no new complaints.? She is breast feeding and reports things are going well.? the patient has done well.? Vitals have been stable, although blood pressures are trending upwards. Dr. Mcallister reviewed BP's and has started Nifedipine today. ? She has remained afebrile.? Has a good appetite, is tolerating a general diet.? She is voiding without difficulty.? She is passing gas and has not had a bowel movement.? She is ambulating and denies any dizziness.? Has Small amount of rubra lochia.? OB - PN: Obj Exam Physical Exam: Vital signs: Temp Pulse Resp BP Pulse Ox O2 Del Method 97.7 F 75 17 144/82 H 98 Room Air 12/07/24 08:27 12/07/24 08:27 12/07/24 08:27 12/07/24 11:12 12/07/24 08:27 12/07/24 08:27 Narrative: GENERAL APPEARANCE:? normal affect, alert, no distress MOOD:? appropriate CHEST:? clear to auscultation HEART:? regular rate and rhythm ABDOMEN:? soft, non-tender the uterine fundus is firm At Umbilicus, Midline and is appropriate for the stage of recovery. EXTREMITIES:? normal and trace edema Incision: Healing well, no surrounding erythema, abnormal induration or discharge. Bruising below incision site. OB - PN: A/P Delivery Assessment and Plan (1) care and examination of lactating mother: Status: Acute (2) Pre-eclampsia superimposed on chronic hypertension: Status: Acute Plan day: 2 Plan: routine care Comments: G 1 P 1 status post uncomplicated primary C/S?? 1.? Continue route PP cares? 2.? .? May see if desired? 3.? Anticipate discharge home tomorrow? 4. ?Acute anemia.? Iron supplement ordered. 5. ?Elevated BP's now being treated with Nifedipine, monitor per protocol.
[2024-12-07] MEDS: NIFEdipine ER 30 MG TAB PO (13:37)
[2024-12-08 04:38] VITALS: BP 130/84; PULSE 71; RESP 18; TEMP 36.6; O2SAT 98
[2024-12-08] MEDS: IBUPROFEN 600 MG TABLET PO (07:48)
--- NOTE | 2024-12-08 09:18 | P.DS_ITS ---
DS: Providers Provider Date Seen: 12/08/24 Date of admission: 12/03/24 13:29 Primary care physician: Not a Local Provider Admitting Clinician: Janette Garcia MD Attending Physician on discharge: Janette Garcia MD Date of Discharge: 12/08/24 DS: Diagnosis Discharge Diagnosis (1) Pre-eclampsia superimposed on chronic hypertension: Status: Acute (2) Anemia due to acute blood loss: Status: Acute (3) S/P section: Status: Acute Exam Narrative: Exam Narrative: General: Pleasant, no acute distress Heart: Regular rate and rhythm, no murmur or gallop Lungs: Clear to auscultation bilaterally Abdomen: Soft, nontender, fundus at umbilicus, normoactive bowel sounds, incision is clean, dry, and intact. Substantial bruising is noted on the mons. Lower extremities: No edema or erythema Const: Vital Signs, click to edit/add: Vital Signs - 24 hr 12/07/24 11:12 12/07/24 14:28 12/07/24 18:41 Temperature 98.2 F 98.2 F Pulse Rate [Pulse Oximeter] 79 Respiratory Rate 17 17 Blood Pressure [Ri ght Arm] 144/82 H 125/71 124/83 Pulse Oximetry 98 Oxygen Delivery Me thod Room Air 12/07/24 20:37 12/07/24 23:02 12/08/24 04:38 Temperature 97.7 F 97.6 F 97.8 F Pulse Rate [Pulse Oximeter] 69 62 71 Respiratory Rate 16 16 18 Blood Pressure [Ri ght Arm] 124/79 134/87 130/84 Pulse Oximetry 98 97 98 Oxygen Delivery Me thod Room Air Room Air Room Air OB - DS: Summary Hospital Course Hospital Course: Felisha is a 29 yo G1 now P1-0-0-1 woman who was admitted on 12/03/24 at 40 3/7 weeks' gestation for IOL for suspected chronic HTN with superimposed preeclampsia without severe features. Her BPs had been elevated early in , and then were elevated at her visit on 12/03. She had Cook Catheter for cervical ripening followed by amniotomy and pitocin for IOL. She was ultimately diagnosed with failed induction of labor on 12/05. She had an uncomplicated primary and gave to a health female . Her course was smooth. Her Hb on POD #1 was 9.8 and she was started on iron supplementation every other day. Most of her BPs were normal with occasional mild elevations . She was started on nifedipine ER 30 mg daily. Today, on POD #3, she is feeling well. She is working on breast feeding. Her infant daughter is healthy. She is tolerating a regular diet and has had a bowel movement. She did have constipation prior to admission. She reports pain is well controlled even without narcotic pain medicines. OB Problem List #Superimposed PreE diagnosed on 12/03/24 #Familial Hypercholesterolemia Primary Care physician would like her to stay on a statin during Referral to M on 05/23/24 for recommendations regarding statin use in Cardiology to see end of December Not taking a statin in , planning on restarting 1 mos after delivery once is well established #History of Grave's disease in 2020. Overtreated and went into remission. On no meds since 2021; previously on methimazole TSH & T4 normal at first OB 09/10/24: TSH 0.468, FT4 0.86 Recommend daily low dose aspirin at 12 weeks 06/19/2024: Thyroid stimulating IgG < 0.10 (</= 0.54) Has an MFM consult and level 2 US 07/03/24 USN's for EFW at 28 and 34 weeks, increase to Q4wk if hyperthyroidism is uncontrolled. TSH 11/13/2024: 0.536 # 09/10/24 Elevated 1hr GTT: 152 3hr GTT: F 85; 1hr 151, 2hr 106, 3hr 80: All normal = no GDM. #History depression and anxiety. Lexapro 10mg discontinued summer 2023. Currently stable. #Idiopathic arthritis as child. No medications since childhood. #Elevated BP x2 at first OB visit. Advised patient to check BP 2-3 times over next 2 weeks. If elevated, she is to call and schedule a nurse visit for a BP check. baseline pre E labs: Normal BUN, Creat, AST, ALT, P/C: 2.13 24 hour urine 04/24/24: P/C: 0.27, total protein 432mg Discussed elevated protein on 24 urine on 05/23/2024: declined nephrology referred, will continue to monitor BP at home. 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 Plans for booster Peripartum Data Procedures: Procedures Operation Date: 12/05/24 09:30 Actual Procedure Side Surgeon p Section Not Applicable Shante Partida MD Infant Gender: Female Time Spent with Patient Time attestation: Total time spent providing and/or coordinating discharge services: Discharge Plan Discharge Disposition: Home, Self-Care Date of Admission: 12/03/24 13:29 Attending Provider on Discharge: Shwetha Lomeli Primary Care Provider: Provider,Not a Local Condition: Stable Anticipated Discharge Date/Time: 12/08/24 09:57 Discharge Medications: New ferrous sulfate 325 mg (65 mg iron) Tablet 325 mg PO Q48H Qty: 0 0RF nifedipine 30 mg Tablet Extended Release 30 mg PO DAILY Qty: 30 0RF ibuprofen 600 mg Tablet 600 mg PO Q6H PRN (Reason: Pain) Qty: 0 0RF oxycodone 5 mg Tablet 5 - 10 mg PO Q4H PRN (Reason: Pain) Qty: 20 0RF Lanolin (HPA) 100 % Cream 1 applic topical Q1H PRNQty: 0 0RF Continued docusate sodium 100 mg capsule 100 mg PO QDAY clindamycin phosphate 1 % gel 1 applic topical QAM azelaic acid 15 % gel 1 applic topical QHS DHA 200 mg capsule 200 mg PO DAILY acetaminophen 500 mg capsule 1,000 mg PO Q6H PRN cholecalciferol (vitamin D3) 10 mcg (400 unit) capsule 10 mcg PO QDAY polyethylene glycol 3350 [ClearLax] 17 gram/dose powder 4 g PO DAILY Discontinued aspirin 81 mg capsule 81 mg PO QDAY Discharge Orders: Discharge Order (Routine); Ordered 12/08/24 Ordered By: Shwetha Lomeli Patient Education: OB /Breast Feeding, OB Over the Counter Medication Information Additional Instructions: Discharge instructions were reviewed with the patient including signs and symptoms of infection and home going medications Lifting Restrictions: 20 pounds for 6 weeks No not submerge incision under water X 2 weeks? Nothing vaginally for 6 weeks: no tampons or intercourse Do not drive while taking narcotic pain medication(s) Off Work or School for 8 weeks Symptoms to report to doctor: * Bleeding that saturates more than one pad per hour * Passing clots larger than the size of a golf ball * Pain not relieved by prescribed medication * Fever above 100.4 degrees Fahrenheit * A foul vaginal odor * Difficulty in emotions, mood, and functions * Thoughts of hurting yourself and/or * Painful, reddened area in your breast * Any drainage, redness, or tenderness in your IV/epidural site * Decrease in urination or painful, frequent urinating * Chest pain * Shortness of breath * Tenderness or pain with redness and/swelling in the calf(s) of your leg [facility] for a BP check?in 3-5 days Call with BP greater than or equal to 160/110 * Severe headache that doesn't improve after taking medications * Changes in vision, including temporary loss of vision, blurred vision, and/or light sensitivity * Upper abdominal pain (usually under ribs on the right side) Optional 2-week visit: incision check, discuss feeding concern s, review control options and screen for anxiety/depression. 6-week visit for an annual exam. consultation services are available to all mothers and babies for the first year after delivery.? To make an appointment, please call [phone]. Activity Detail: as above Discharge Diet: Regular Follow Up Appointments: [facility] [Provider Group] Forms: [facility] Info Instructions Discharge Comments: Blood pressure check
[2024-12-08] MEDS: DOCUSATE SODIUM 100 MG CAPSULE PO (10:04)
[2024-12-08] MEDS: NIFEdipine ER 30 MG TAB PO (10:08)
[2024-12-08 10:12] VITALS: BP 145/81; PULSE 60; RESP 18; TEMP 36.5; O2SAT 96
[2024-12-08 10:43] VITALS: BP 134/84
[2024-12-08] MEDS: ACETAMINOPHEN 500 MG TABLET 1000 MG PO (12:06)
[2024-12-08 12:39] VITALS: BP 120/76; PULSE 81; RESP 18; TEMP 36.8; O2SAT 97
== END 2024-12-08 13:40 | disposition home or self-care (01) | DRG 787 ==
PROVIDERS: Obstetrics & Gynecology; Admitting Provider Obstetrics & Gynecology; Visit Provider Obstetrics & Gynecology
PROC: 10D00Z1 Extraction of Products of Conception, Low, Open Approach (ICD-10-PCS; CPT 59514; principal; 2024-12-05 09:30)
DX: O11.4 Pre-existing hypertension with pre-eclampsia, complicating childbirth (principal); D62 Acute posthemorrhagic anemia; O10.92 Unspecified pre-existing hypertension complicating childbirth; O90.81 Anemia of the puerperium; G89.18 Other acute postprocedural pain; O99.824 Streptococcus B carrier state complicating childbirth; O61.0 Failed medical induction of labor; O61.1 Failed instrumental induction of labor; O99.344 Other mental disorders complicating childbirth; F41.9 Anxiety disorder, unspecified; E05.00 Thyrotoxicosis with diffuse goiter without thyrotoxic crisis or storm; K59.00 Constipation, unspecified; Z37.0 Single live birth; Z3A.40 40 weeks gestation of pregnancy
CPT/HCPCS: 01967; 01968; 36415; 59200; 64488; 76942; 82565; 82570; 84156; 84450; 84460; 84520; 85018; 85027; 86592; 86850; 86900; 86901; 88307; 99140; A4314; A9270; C1726; J0290; J0456; J0665; J0666; J0690; J1100; J1885; J2274; J2405; J2590; J2795; J7050; J7120

== ENCOUNTER 2024-12-13 11:01 | Outpatient (CLI) | payer OTHER, SELFPAY | END 2024-12-13 11:02 | disposition home or self-care (01) | PROVIDERS: Visit Provider Physician Assistant | DX: O14.93 Unspecified pre-eclampsia, third trimester (principal); Z3A.41 41 weeks gestation of pregnancy | CPT/HCPCS: 82565; 84450; 84460; 84520 ==

== ENCOUNTER 2024-12-14 10:25 | Outpatient (CLI) | payer OTHER, SELFPAY | END 2024-12-14 10:26 | disposition home or self-care (01) | LOC: NFLDREF 12-18 07:47 | PROVIDERS: Visit Provider Physician Assistant | DX: O14.90 Unspecified pre-eclampsia, unspecified trimester (principal) | CPT/HCPCS: 82565; 84450; 84460; 84520 ==

== ENCOUNTER 2024-12-17 13:13 | Outpatient (CLI) | payer OTHER, SELFPAY ==
--- OUTSIDE RECORDS SUMMARY | 2024-12-17 14:29 | XMS_ITS | Encounter Summary ---
Author Organization [facility] Address [address] [place] [address]. [place] [address] Care Team Providers Care Senior Construction Estimator Name Role Phone Gladys Lucas MD Primary Care Provider [phone] Catherine Keith MD Unavailable [phone] Encounter Details Date Type Department Care Team (Late st Contact Info) Description 04/02/2012 [facility] Medical Advice 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
--- OUTSIDE RECORDS SUMMARY | 2024-12-17 14:29 | XMS_ITS | Clinical Summary ---
Author Organization [facility] Address [address] [place] [address] Care Team Providers Care Training Program Manager Name Role Phone Apoorva Escobar DO Primary Care Provider Manas Joseph DO Unavailable [phone] Allergies No known active allergies Medications Lactobacillus acidophilus (Probiotic) 10 billion cell cap Take by mouth daily Active ergocalciferol, vitamin D2, (VITAMIN D2 ORAL) Take by mouth daily Active vit no.124/iron/foli c ( VITAMIN ORAL) Take by mouth. Active aspirin (ECOTRIN) 81 mg enteric coated tablet Take 81 mg by mouth once daily with a meal. Active clindamycin (CLEOCIN-T) 1 % lotionIndication s:Acne vulgaris Apply a thin layer to face every morning 60 mL 2 07/26/2024 Active azelaic acid (FINACEA) 15 % gelIndications:A cne vulgaris Apply thin layer every evening before bedtime to face 50 g 2 07/26/2024 Active Active Problems Problem Noted Date Diagnosed Date Pap smear for cervical cancer screening 05/06/20 23 Overview (05/06/2023): 04/2023 NIL/HPV Negative Plan: Pap/HPV testing due in 5 years Elevated Lp(a) 05/25/2022 Familial hypercholesterolemia 05/23/2022 Pure hypercholesterolemia 03/23/2022 Graves' disease 03/23/2022 Overview (03/23/2022): Follows with Endocrinology at [facility] Acne vulgaris 02/25/2021 Overview (03/23/2022): Using otc salicylic acid washes. Is also using retinol product every other night. Acne was better when she was on oral contraceptive pills but she was very contreras and so she prefers the IUD. She is noting scarring, particularly below her mask. She does not have acne anywhere else. Thyroid nodule 02/25/2021 Overview (03/23/2022): Palpable 1 cm lump left thyroid; Felisha reports feeling sweaty and clammy at night. No weight loss. +fatigue Juvenile idiopathic arthritis 05/14/2019 Overview (03/23/2022): Last Assessment & Plan: Quiescent at this time. Off all meds. Uses intrauterine device for control 05/14 Overview (04/28/2023): [facility] [place]; Due to be removed 2023. Adjustment disorder with anxious mood 04/25/2019 Overview (03/23/2022): Last Assessment & Plan: Currently doing very well. 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 Tear film insufficiency 12/10/2014 Overview (03/23/2022): Last Assessment & Plan: Improved. Estimated Date of Delivery Comme nts Yes 12/17/2024 Encounters Date Type Department Care Team Description 12/06/2024 Lab Requisition [facility] [phone] Shante Partida MD from Last 3 Months Immunizations Immunization Administration Dates Next Due DTP-HIB 02/09/1996,1995,1995 DTaP 11/25/2000,07/26/1996 Dtap Unspecified Formulation 11/25/2000,07/26/18 97 Hep B (Hepatitis B (Adult) R ecombinant Adjuvanted) 05/15/2019,03/06/2019 Hepatitis A (Peds) 09/03/2011,01/28/2011 Hepatitis A, Unspecified 09/03/2011,01/28/2011 Hepatitis B (Peds) 01/25/1997,1995, 996 Hepatitis B, Unspecified 01/25/1997,1995,0 1995 Hib Conjugate, Unspecified 07/26/1996 Human Papilloma Virus Vaccine 09/03/2011, 011,01/28/2011 Inactivated Polio Vaccine 11/25/2000 Influenza A (H1N1), Inactivated 04/17/2009 Influenza Virus, Unspecified 04/03/2018, 03/05/2016,02/27/2015,03/12 Influenza, CCIIV3 (Age >=6 M O) (Egg Free) 03/29/2024 Influenza, IIV4 02/24/2022,,04/15/2020,04/11,03/23/2017,03/05/2016 Influenza, IIV4 (=>6mos) MDV 04/03/2014 Influenza,CCIIV4 PRESERV FREE 02/28/2023, 022 MMR 11/25/2000,07/26/1996 Meningococcal Vaccine (Menactra) 09/03/2011,02/18 Oral Polio Vaccine 02/09/1996,1995, 996 Tdap 02/06/2020,08/05/2009 Varicella Vaccine 08/05/2009,07/26/1996 meningococcal B, Recombinant 07/17/2018 Family History Medical History Relation Name Comments Good Health Brother Kenny not sure of cho l Hypertension Father Mayco Asthma Maternal Grandfather Martinez COPD Maternal Grandfather Martinez Hyperlipidemia Maternal Grandmother Lydia Osteoporosis Maternal Grandmother Lydia Hyperlipidemia Mother Lisbet Hypertension Paternal Aunt Melissa Rheum arthritis Paternal Aunt Melissa Cancer-pancreatic Paternal Grandfather Heart failure Paternal Grandmother Edward Hypertension Paternal Grandmother Edward Relation Name Status Comments Brother Kenny Alive Father Mayco Alive Maternal Grandfather Martinez Maternal Grandmother Lydia Alive Mother Lisbet Alive Paternal Aunt Melissa Alive Paternal Grandfather Paternal Grandmother Edward Alive Social History Tobacco Use Types Packs/Day Years Used Date Smoking Tobacco: Never Smokeless Tobacco: Never Tobacco Cessation:Counseling Given: Not Answered Alcohol Use Standard Drinks/Week Comments Not Currently 2 (1 standard drink = 0.6 oz pur e alcohol) PHQ-2 Answer Date Recorded PHQ-2 TOTAL SCORE 0 05/15/2024 Social Connections Answer Date Recorded Do you often feel lonely or isolated from those around you? 0 05/15/2024 Financial Resource Strain Answer Date R ecorded Difficulty of Paying Living Expenses 3 05/15/2024 Difficulty of Paying Living Expenses Not on file 05/15/2024 Food Insecurity Answer Date Recorded Do you worry your food will run out before you are able to buy more? 1 05/15/2024 Transportation Needs Answer Date Record ed Does lack of transportation keep you from medica l appointments? 1 05/15/2024 Does lack of transportation keep you from work, meetings or getting things that you need? 1 05/15/2024 Housing Stability Answer Date Recorded What is your housing situation today? 1 05/15/2024 Utilities Answer Date Recorded Do you have trouble paying f or utilities (for example, heat, electricity, water, phone)? 1 05/15/2024 Estimated Date of Delivery Comme nts Yes 12/17/2024 Sex and Gender Information Value Date Recorded Sex Assigned at Not on file Legal Sex Female 8:55 AM CDT Gender Identity Not on file Sexual Orientation Not on file Obstetrics History Para Term AB IAB SAB Ectopic Multiple Livin g Live Births 1 Date Outcome GA Total Labor Labor/2nd/3rd Weight Sex Type Anes PTL Cynthia A1 A5 Name Clin Current Last Filed Vital Signs Vital Sign Reading Time Taken Comments Blood Pressure 122/72 07/23/2024 4:28 PM FLOORWORKER DISTRIBUTOR Pulse 65 07/23/2024 4:28 PM FLOORWORKER DISTRIBUTOR Temperature 36.8 C (98.2 F) 09/23/2023 11:41 AM CDT Respiratory Rate 16 07/23/2024 4:28 PM FLOORWORKER DISTRIBUTOR Oxygen Saturation 100% 07/23/2024 4:28 PM FLOORWORKER DISTRIBUTOR Inhaled Oxygen Concentration - - Weight 71.2 kg (157 lb) 07/23/2024 4:28 PM FLOORWORKER DISTRIBUTOR Height 167.6 cm (5' 5.98) 07/23/2024 4:28 PM CS T Body Mass Index 25.35 07/23/2024 4:28 PM FLOORWORKER DISTRIBUTOR Plan of Treatment Upcoming Encounters Date Type Department Care Team (Late st Contact Info) Description 01/11/2025 12:00 PM CDT Orders Only [facility] [address] [place] [address] 01/11/2025 1:00 PM CDT Office Visit [facility] [address] [place] [phone] Jalil Cabezas MD [address] [place] [address] Health Maintenance Due Date Last Done Comments Depression screening for age 12+ 05/15/2025 05/15/2024, 10/31/2023, 10/10/2023, Additional history exists BMI (ht and wt on same day) for age 18+ 07/23/2025 07/23/2024, 05/15/2024, 09/04/2023, Additional history exists Pap test for age 21-65 04/28/2028 04/28/2023, 2022 Tetanus booster 02/05/2030 02/06/2020, 08/05/2009 Hepatitis B series for 19+ Completed 05/15, 03/06/2019, 01/25/1997, Additional history exists Tdap Completed 02/06/2020, 08/05/2009 HIV for age 15-65 Completed 04/28/2023 Hepatitis C screening for age 18-79 Completed 04/28/2023 COVID-19 vaccine series Completed 03/29/20 24, 04/29/2023, 04/05/2022, Additional history exists Influenza Vaccine Completed 03/29/2024, , 02/24/2022, Additional history exists Pneumococcal series for age 6-49 Aged Out No longer eligible based on patient's age to complete this topic RSV vaccine for adults or (No Doses Required) Completed Procedures Procedure Name Priority Date/Time Associated Diagnosis Comments LAB TRACKING EVENT Routine 12/05/2024 9: 45 AM CDT PATH TISSUE EXAM PLACENTA Routine 12/05/2024 9:45 AM CDT ANTI HIV 1/2 Routine 04/28/2023 10:42 AM FLOORWORKER DISTRIBUTOR Encounter for screening for HIV ANTI HCV Routine 04/28/2023 10:42 AM FLOORWORKER DISTRIBUTOR Need for hepatitis C screening test HPV HIGH RISK Routine 04/28/2023 10:20 AM FLOORWORKER DISTRIBUTOR Pap smear for cervical cancer screening from Last 3 Months or Most Recently Relevant to Health Maintenance Results * LAB TRACKING EVENT (12/05/2024 9:45 AM CDT) Other (Other) Client Collect / Unknown 12/05/2024 9:45 AM CDT 12/06/2024 1:52 AM CDT Shante Partida MD LAB BILL ONLY Final Re sult [facility] LABORATORY [address] [place] [address], * PATH TISSUE EXAM PLACENTA (12/05/2024 9:45 AM CDT) Case Report Pathology Report Case: [id number] Authorizing Provider: Shante Partida MD Collected: 12/05/2024 0945 Ordering Location: [facility] Received: 12/06/2024 0759 Pathologist: Ulysses Garrison MD Specimen: Placenta 12/07/2024 4:46 PM CDT [facility] LABORATORY-C ENTRAL LABORATORY Final Diagnosis A) PLACENTA, DELIVERY: 1. Third trimester morales placenta with the following characteristics: a. Weight: 401 grams (40 week 10-90th percentile weight range, 442 - 632 grams) b. Membranes/ surface: Negative for chorioamnionitis c. Umbilical cord: Three vessel cord Negative for funisitis d. Disc/Villi: Chorionic villi consistent with gestational age Negative for villitis Placental disc without infarcts e. Decidua/basal plate: No diagnostic abnormalities identified 12/07/2024 4:46 PM CDT [facility] LABORATORY-C ENTRAL LABORATORY at 1646 CDT Comment The patient's clinical history of hypertension and pre-eclampsia is noted. Some histologic features that can be associated with maternal hypertensive disorders include decidual vasculopathy, infarcts, abruption, villous maldevelopment, and small placental size. In this case, small placental size is present. 12/07/2024 4:46 PM CDT [facility] LABORATORY-C ENTRAL LABORATORY Clinical Information Indications for Placental Examination by Pathology Maternal indications: Pre-Eclampsia Infectious specimen (e.g. maternal HIV or HCV): No Clinical information: Date of delivery: 12/05/2024 Time of delivery: 944 Type of delivery: Live born:Yes Gestational age: 40.5 weeks weight of (s): 3360 grams Sex of infant (s): Female Pertinent Maternal History: Maternal parity: Diabetes: No Hypertension: Yes Eclampsia: No Smoking: No 12/07/2024 4:46 PM CDT [facility] LABORAT[facility]-C ENTRAL LABORATORY Gross Description A) Received in formalin labeled with the patient's name and placenta, is a 401 gram, 17 x 15 x 1.8 cm morales placenta. The surface is blue-rodriguez with normal vasculature. The 52 cm long, 1.0 cm diameter trivascular umbilical cord is centrally inserted 6.5 cm from the nearest edge of the placental plate. No knots or thrombi are identified. The extraplacental membranes are martinez, thickened and opaque with marginal insertion. The maternal surface is complete, with smooth rounded contours and minimal loosely here clotted blood and scattered minute yellow-martinez calcified foci. Sectioning reveals soft, spongy deep red/purple parenchyma. No masses or lesions are identified. Sustainability Project Manager sections are submitted: 1. membranes and insertion 2. Umbilical cord 3. Umbilical cord insertion site 4-5. Full-thickness central disc Time and date in formalin: 1125 on 12/06/2024 STN 12/06/2024 12/07/2024 4:46 PM CDT [facility] LABORATORY-C ENTRAL LABORATORY Microscopic Description The final diagnosis is based on microscopic examination of appropriate sections of all specimens. 12/07/2024 4:46 PM CDT [facility] Additional Information Interpreted at [facility], Central Laboratory - [address], [place] [address] 12/07/2024 4:46 PM CDT [facility] Tissue SPECIMEN FROM PLACENTA / Unknown 12/05/2024 9:45 AM CDT 12/06/2024 7:59 AM CDT Shante Partida MD PATHOLOGY/CYTOLOGY Final Result Performing Organization Address [facility]/ZIP Co de Phone Number [facility] [address] [place] [address], [place] * ANTI HCV (04/28/2023 10:42 AM FLOORWORKER DISTRIBUTOR) HEPATITIS C ANTIBODY Non-Reacti ve Non-React callum 04/28/2023 2:19 PM FLOORWORKER DISTRIBUTOR [facility] TRAL LABORAT[facility] Comment:Please note, per www .CDC.gov: If a patient is known to be at high risk of HCV infection, or is symptomatic, and the physician's suspicion of HCV infection is high, HCV RNA testing is often employed and is of diagnostic value, even after an initial negative anti-HCV test result. Blood BLOOD SPECIMEN / Unknown Venipuncture / Unknown 04/28/2023 10:42 AM FLOORWORKER DISTRIBUTOR 04/28/2023 10:42 AM FLOORWORKER DISTRIBUTOR Apoorva Escobar DO SEND OUTS Final Result [facility] [address] [place], [place] [id number], [place] * ANTI HIV 1/2 (04/28/2023 10:42 AM FLOORWORKER DISTRIBUTOR) HIV-1/HIV-2 SCREEN Non-Reacti ve Non-Reacti ve 04/28/2023 2:22 PM FLOORWORKER DISTRIBUTOR [facility] TR[facility] LABORATORY Comment:HIV-1 p24 and HIV-1/ HIV-2 Ab Not Detected. Blood BLOOD SPECIMEN / Unknown Venipuncture / Unknown 04/28/2023 10:42 AM FLOORWORKER DISTRIBUTOR 04/28/2023 10:42 AM FLOORWORKER DISTRIBUTOR Apoorva Escobar DO SEND OUTS Final Result Performing Organization Address [facility] Co de Phone Number [facility] [address] * HPV HIGH RISK (04/28/2023 10:20 AM FLOORWORKER DISTRIBUTOR) TYPE 16 Negative Negative 05/04/2023 11:11 AM FLOORWORKER DISTRIBUTOR [facility]AT[facility] TRAL LABORATORY TYPE 18 Negative Negative 05/04/2023 11:11 AM FLOORWORKER DISTRIBUTOR [facility] TRAL LABORATORY OTHER HIGH RISK TYPES Negative Negative 05/04/2023 11:11 AM FLOORWORKER DISTRIBUTOR [facility] TR[facility] LAB[facility]ORY Other (Cervical) Non-Blood / Unknown 04/28/2023 10:20 AM FLOORWORKER DISTRIBUTOR 04/29/2023 10:05 AM FLOORWORKER DISTRIBUTOR Narrative [facility] [facility] - 05/04/2023 11:11 AM FLOORWORKER DISTRIBUTOR HPV types 16, 18, 31, 33, 35, 39, 45, 51, 52, 56, 58, 59, 66 and 68 DNA were undetectable or below the pre-set threshold. Methodology: Mili Megan 4800 HPV Test Apoorva Escobar DO MICROBIOLOGY Final Result Performing Organization Address [facility] de Phone Number [facility] [address] from Last 3 Months or Most Recently Relevant to Health Maintenance Insurance [facility] [employer] [facility] Care Teams Training Program Manager Relationship Specialty Start Date End Date Apoorva Escobar DO [address] [place] [address] PCP - General Family Practice 03/23/22 Manas Joseph DO [address] [place] [address] Endocrinology 09/09/22
--- OUTSIDE RECORDS SUMMARY | 2024-12-17 14:29 | XMS_ITS | Patient Health Record ---
Author Organization [facility] Address [address] [place] [address] Care Team Providers Care Backpackers Manager Name Role Phone Rogerio Pandya Primary Care Provider Allergies No Known Allergies Reason For Referral No Information Medications Medication SIG (Take, Route, Fr equency, Duration) Notes Start Date End Date Status Escitalopram 10mg Active Fish Oil Active methIMAzole 2.5mg Active Multi-Vitamin Active Spironolactone 100 MG 1 tablet Orally Once a day Active Social History Tobacco Use: Social History Observation Description Date Details (start date - stop date) Never Smoker NA - NA Tobacco Use/Smoking Question Answer Notes Are you a nonsmoker Alcohol Screen (Audit-C) Question Answer Notes Did you have a drink contain ing alcohol in the past year? Yes How often did you have a dri nk containing alcohol in the past year? Monthly or less (1 point) How many drinks did you have on a typical day when you were drinking in the past year? 3 or 4 drinks (1 point) Points 2 Interpretation Negative Problems Problem Type SNOMED Code ICD Code Onset Dates Problem Status W/U Status Risk Notes Problem 932908802107404 History of Graves' disease (Z86.39) Active confirmed Problem 20122350 Chronic fatigue (R53.82) Active confirmed Plan Of Treatment No Information Insurance Providers Payer Name Payer Address Payer Phone Subscriber Number Group Number Insured Name Patient Relationship to Insured Coverage Start Date Coverage End Date [employer] (PayerI D [id number]) (Ins. Bill) [address] [place], [place] [phone] [id number] IFB Felisha May Self - patient is the insured 2 Medical (General) History Medical History History ICD Code Depression/ Anxiety thyroid condition arthritis
--- OUTSIDE RECORDS SUMMARY | 2024-12-17 14:29 | XMS_ITS | Encounter Summary ---
Author Organization [facility] Address [address] [place] [address] Care Team Providers Care Financial Services Technician Name Role Phone Gladys Lucas MD Primary Care Provider + [phone] Catherine Keith MD Unavailable [phone] Encounter Details Date Type Department Care Team (Late st Contact Info) Description 06/20/2024 MyC Medical Advice Initial Department Suhail Plasencia Social History Tobacco Use Types Packs/Day Years Used Date Smoking Tobacco: Never Assessed Adolescent Education Answer Date Record ed Getting School Help Needed Not on file 04/06 Comments Unknown Sex and Gender Information Value Date Recorded Sex Assigned at Not on file Legal Sex Female 5:04 AM BEAD TRIMMER Gender Identity Not on file Sexual Orientation Not on file documented as of this encounter Plan of Treatment Not on file documented as of this encounter Visit Diagnoses Not on filedocumented in this encounter Care Teams Financial Services Technician Relationship Specialty Start Date End Date Gladys Lucas MD PCP - General 12/04/10 Catherine Keith MD [address] [address] Assigned OBGYN Provider 07/12/24 documented as of this encounter
--- OUTSIDE RECORDS SUMMARY | 2024-12-17 14:29 | XMS_ITS | Clinical Summary ---
Author Organization [place] Address [address] [facility] [place] [address] Care Team Providers Care Digital Content Coordinator Name Role Phone Gladys Lucas MD Primary Care Provider [phone] Catherine Keith MD Unavailable [phone] Allergies No known active allergies Medications cycloSPORINE (RESTASIS) 0.05 % ophthalmic emulsion Place 1 drop into both eyes every 12 hours. Active Acetaminophen (TYLENOL EXTRA STRENGTH PO) Take 1 tablet by mouth daily as needed. Active folic acid (FOLVITE) 1 MG tabletIndicatio ns:KENDALL (juvenile idiopathic arthritis), enthesitis related arthritis (H) Take 1 tablet (1 mg) by mouth daily 90 tablet 3 08/06/2013 Active hydroxychloroqu ine (PLAQUENIL) 200 MG tabletIndicatio ns:KENDALL (juvenile idiopathic arthritis), enthesitis related arthritis (H) Take 2 tablets (400 mg) by mouth daily 180 tablet 1 09/27/2013 Active MV-Min-Fe Fum-FA-DHA ( 1 PO) Take 1 tablet by mouth daily. 02/27/2024 Active Vitamin D3 (CHOLECALCIFERO L) 25 mcg (1000 units) tablet Take 1 tablet by mouth daily. Active aspirin 81 MG EC tablet Take 81 mg by mouth daily. 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/2011 Estimated Date of Delivery Comme nts Yes 11/30/2024 Based on Ultraso und Social History Tobacco Use Types Packs/Day Years Used Date Smoking Tobacco: Never Smokeless Tobacco: Never Tobacco Cessation:Counseling Given: Yes Adolescent Education Answer Date Record ed Getting School Help Needed Not on file 04/06 Estimated Date of Delivery Comme nts Yes 11/30/2024 Based on Ultraso und Sex and Gender Information Value Date Recorded Sex Assigned at Not on file Legal Sex Female 5:04 AM TEST ANALYST Gender Identity Not on file Sexual Orientation Not on file Last Filed Vital Signs Vital Sign Reading Time Taken Comments Blood Pressure 138/85 07/03/2024 9:45 AM TEST ANALYST Pulse 82 07/03/2024 9:45 AM TEST ANALYST Temperature 36.9 C (98.4 F) 08/06/2013 8:57 AM TEST ANALYST Respiratory Rate 18 07/03/2024 9:45 AM TEST ANALYST Oxygen Saturation 100% 07/03/2024 9:45 AM TEST ANALYST RA Inhaled Oxygen Concentration - - Weight 63.2 kg (139 lb 5.3 oz) 08/06/2013 8:57 A M TEST ANALYST Height 166.5 cm (5' 5.55) 08/06/2013 8:57 AM CS T Body Mass Index 22.8 08/06/2013 8:57 AM TEST ANALYST Plan of Treatment Health Maintenance Due Date Last Done Comments ADVANCE CARE PLANNING 1995 ANNUAL REVIEW OF HM ORDERS 1995 PNEUMOCOCCAL VACCINE: PEDIAT RICS (0 to 5 YEARS) AND AT-RISK PATIENTS (6 to 49 YEARS) (1 of 2 - PCV) 2014 ZOSTER VACCINE (1 of 2) 2014 COVID-19 VACCINE (3 - Pfizer risk series) 04/26/2024 03/29/2024, 04/29/2023 MATERNAL SCREENING DISCUSSION 05/04/2024 PHQ-2 (once per calendar year) 2024 OBGCT (OB) 08/10/2024 TDAP VACCINE () 08/31/2024 GROUP B STREP SCREENING 11/02/2024 YEARLY PREVENTIVE VISIT 05/15/2025 05/15/20, 04/28/2023, 07/17/2018, Additional history exists PAP 04/28/2026 04/28/2023, 07/22, 08/13/2016 DTAP/TDAP/TD VACCINE (8 - Td or Tdap) 02/05/2030 02/06/2020, 08/05/2009, 11/25/2000, Additional history exists HPV VACCINE Completed 09/03/2011, 03/20, 01/28/2011 MENINGITIS VACCINE Completed 09/03/2011, 02/29/2008 HEPATITIS B VACCINE Completed 05/15/2019, 03/06/2019, 01/25/1997, Additional history exists HEPATITIS C SCREENING Completed 04/28/2023, 014 HIV SCREENING Completed 04/28/2023 INFLUENZA VACCINE Completed 03/29/2024, , 02/24/2022, Additional history exists RSV VACCINE (No Doses Required) Completed Insurance [employer] Member Subscriber Plan / Payer (Ef fective 2023-Present) Name:EDILIA VALENCIA Relation to Subscriber:Spouse Name:ZACH VALENCIA Date of :1995 (Home) Address: [address] [place] [id number] Payer ID:[id number] (NAIC) Type:Indemnity Address: [place] [id number] [employer] Care Teams Digital Content Coordinator Relationship Specialty Start Date End Date Gladys Lucas MD PCP - General 12/04/10 Catherine Keith MD [address] [place] [address] Assigned OBGYN Provider 07/12/24
--- OUTSIDE RECORDS SUMMARY | 2024-12-17 14:29 | XMS_ITS | Encounter Summary ---
Author Organization [place] Address [address] [facility] [place] [address] Care Team Providers Care Filter Helper Name Role Phone Gladys Lucas MD Primary Care Provider + [phone] Catherine Keith MD Unavailable [phone] Encounter Details Date Type Department Care [...] on file Legal Sex Female 5:04 AM EXECUTIVE OFFICE MANAGER Gender Identity Not on file Sexual Orientation Not on file documented as of this encounter Plan of Treatment Not on file documented as of this encounter Visit Diagnoses Not on filedocumented in this encounter Care Teams Filter Helper Relationship Specialty Start Date End Date Gladys Lucas MD PCP - General 12/04/10 Catherine Keith MD [address] [address] Assigned OBGYN Provider 07/12/24 documented as of this encounter
--- NOTE | 2024-12-17 15:36 | W.PM.LAC.MC ---
Consult Note - Mom Date of Visit Date of visit: 12/17/24 Reason for consultation: Assistance Needed and Breast/Nipple Issue Visit Code: Visit Patient's Information Phone number: [phone] : 1 Para: 1 Allergies No Known Drug Allergies Allergy (Verified 12/03/24 13:42) Mother's Medical History: Medical History (Updated 12/11/24 @ 00:01 by Background Rachana) care and examination of lactating mother ?Z39.1 - Encounter for care and examination of lactating mother (ICD-10) Anxiety ?F41.9 - Anxiety disorder, unspecified (ICD-10) Graves disease ?E05.00 - Thyrotoxicosis with diffuse goiter without thyrotoxic crisis or storm (ICD-10) 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, unspecified site (ICD-10) Acne ?L70.9 - Acne, unspecified (ICD-10) Thyroid nodule ?E04.1 - Nontoxic single thyroid nodule (ICD-10) Work Plans: return to work in Feb 2025 Delivery Information Gestational Age: 40+5 Gestational Weight For Age: AGA Weight: 3.36 kg Discharge Weight: 3.09 kg Percentage weight loss: 8.1 Baby's Information Baby's Age at Visit: 12 days Baby's Provider or Clinic: [facility] Jaundice: No Past Experience Past Experience: No Current Frequency of Day Feedings: every 2-2.5 hours Frequency of Night Feedings: 2.5-3 hours Both Breasts: Yes (usually) Suck: strong Latch: getting better, was initially very painful Length of Time: 20-25 min on 1 side, sometimes longer Goals: at least 1 year Pumping Pumping: No Supplementing EBM Supplement: No Formula Supplement: No Baby Elimination Number of Wet Diapers a Day: ea feeding Number of BM a Day: 4-5, or more; yellow, seedy Breast/Nipple Condition Breast Information: Breasts are symmetrical with rounded lower quadrants, intramammary distance is less than 1.5 inches. No erythema. Nipples are supple, everted prior to feeding. Breast Shape: Round Engorgement: No Maternal Nipple Condition - Left: Common Nipple Maternal Nipple Condition - Right: Common Nipple Sore Nipples: Yes (slight, getting better) Interventions for Sore Nipples: Lansinoh/Nipple Cream and Other (silverette) Baby Assessment Skin: Normal Tongue/frenulum: Normal/elastic Palate: Average Lips: Relaxed and Symmetrical Jaw Alignment: Symmetrical Mucosa: [place], moist Onsite Observation Pre-Feed weight: 3.372 kg Post-Feed weight: 3.462 kg (after 15 min on RIGHT side, offered LEFT side and baby declined to latch) Milk Transferred (mL): 90 Position: Cross cradle Attachment/latch-on achieved: Easily Suck pattern: Suck burst and normal rest Swallow: Audible, consistent and Gulping Behavior following feed: Relaxed, sleepy Pre-Nursing Left Nipple: Within Normal Limits Pre-Nursing Right Nipple: Within Normal Limits Post-Nursing Left Nipple: Within Normal Limits Post-Nursing Right Nipple: Within Normal Limits Assessments/Interventions Assessments/Interventions: Worked with mom/taught asymmetrical latch technique for a wide, deeper latch and mom reports increased comfort with this. Reviewed in both football and cross cradle hold Discussed normals of ; regulation of supply, use of pump to relieve fullness if needed, but not to pump every feeding if not needed to prevent over supply. Ibuprofen for mom ok to help decrease breast discomfort as needed. Nipple care reviewed as well. Discussed pumping to freeze some milk bags as well as pumping to add bottles at 3-4 weeks of age. Reviewed settings on Spectra pump for when Felisha starts that process. Education provided: Early feeding cues to maximize timing of latching, Asymmetric latch technique for wide/deep latch to increase milk, Transfer for baby and increase comfort for mom, Supply/demand nature of milk supply, Alternative feeding methods (SNS, cup, finger feeding, bottling), Use of nipple shield and Pumping for milk management Follow-Up Suggested follow up: Appointment as needed Time Spent Time spent with patient (min): 75 Meds Home Medications and Allergies Home Medications ?Medication ?Instructions ?Recorded ?Confirmed ?Type acetaminophen 500 mg capsule 1,000 mg PO Q6H PRN 04/20/24 12/13/24 History cholecalciferol (vitamin D3) 10 10 mcg PO QDAY 04/20/24 12/13/24 History mcg (400 unit) capsule docosahexaenoic acid 200 mg 200 mg PO DAILY 04/20/24 12/13/24 History capsule ( DHA) docusate sodium 100 mg capsule 100 mg PO QDAY 05/18/24 12/13/24 History azelaic acid 15 % topical gel 1 applic topical QHS 08/13/24 12/13/24 History clindamycin phosphate 1 % topical 1 applic topical QAM 08/13/24 12/13/24 History gel polyethylene glycol 3350 17 4 g PO DAILY 12/03/24 12/13/24 History gram/dose oral powder (ClearLax) ferrous sulfate 325 mg (65 mg 325 mg PO Q48H #0 tabs 12/08/24 12/13/24 Rx iron) tablet ibuprofen 600 mg tablet 600 mg PO Q6H PRN Pain #0 tabs 12/08/24 12/13/24 Rx nifedipine 30 mg tablet,extended 30 mg PO DAILY #30 tabs 12/08/24 12/13/24 Rx release Allergies Allergy/AdvReac Type Severity Reaction Status Date / Time No Known Drug Allergies Allergy Verified 12/03/24 13:42
--- OUTSIDE RECORDS SUMMARY | 2024-12-18 02:24 | XMS_ITS | Clinical Summary ---
Author Organization [facility] Address [address] [facility] [place] [address] Care Team Providers Care Coping Machine Assembler Name Role Phone Gladys Lucas MD Primary Care Provider [phone] Catherine Keith MD Unavailable [phone] Allergies No known active allergies Medications [...] on file Legal Sex Female 5:04 AM LABORER YARD Gender Identity Not on file Sexual Orientation Not on file Last Filed Vital Signs Vital Sign Reading Time Taken Comments Blood Pressure 138/85 07/03/2024 9:45 AM LABORER YARD Pulse 82 07/03/2024 9:45 AM LABORER YARD Temperature 36.9 C (98.4 F) 08/06/2013 8:57 AM LABORER YARD Respiratory Rate 18 07/03/2024 9:45 AM LABORER YARD Oxygen Saturation 100% 07/03/2024 9:45 AM LABORER YARD RA Inhaled Oxygen Concentration - - Weight 63.2 kg (139 lb 5.3 oz) 08/06/2013 8:57 A M LABORER YARD Height 166.5 cm (5' 5.55) 08/06/2013 8:57 AM CS T Body Mass Index 22.8 08/06/2013 8:57 AM LABORER YARD Plan of Treatment Health Maintenance Due Date [...] RSV VACCINE (No Doses Required) Completed [place] [address] [employer] Member Subscriber Plan / Payer (Ef fective 2023-Present) Name:EDILIA VALENCIA Relation to Subscriber:Spouse Name:ZACH VALENCIA Date of :1995 (Home) Address: [address] [place] [id number] Payer ID:[id number] (NAIC) Type:Indemnity Address: [place] [phone] [employer] Care Teams Coping Machine Assembler Relationship Specialty Start Date End Date Gladys Lucas MD PCP - General 12/04/10 Catherine Keith MD [address] [place] [address] Assigned OBGYN Provider 07/12/24
--- OUTSIDE RECORDS SUMMARY | 2024-12-18 02:24 | XMS_ITS | Encounter Summary ---
Author Organization [facility] Address [address] [place] [address]. [place] [address] Care Team Providers Care Floor Attendant Name Role Phone Gladys Lucas MD Primary Care Provider [phone] Catherine Keith MD Unavailable [phone] Encounter Details Date Type Department Care Team (Late st Contact Info) Description 04/02/2012 [facility] Explorer [facility] [address]th [address] [place] [phone] Skyler Wasserman MD [address] [place] [phone] Social History Tobacco Use Types Packs/Day Years Used Date Smoking Tobacco: Never Comments Unknown Sex and Gender Information Value Date Recorded Sex Assigned at Not on file Legal Sex Female 5:04 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
--- OUTSIDE RECORDS SUMMARY | 2024-12-18 02:24 | XMS_ITS | Clinical Summary ---
Author Organization [employer] [facility] Address [address] [place] [address] Care Team Providers Care Studio Technician Name Role Phone Apoorva Escobar DO Primary Care Provider Manas Joseph DO Unavailable [phone] Allergies No known active allergies Medications Lactobacillus [...] 03/23/2022 Overview (03/23/2022): Follows with Endocrinology at [facility] Acne vulgaris 02/25/2021 Overview (03/23/2022): Using [...] [facility] [place]; Due to be removed 2023. Adjustment disorder with anxious mood 04/25/2019 Overview (03/23/2022): Last Assessment & Plan: Currently doing very well. 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 Tear film insufficiency 12/10/2014 Overview (03/23/2022): Last Assessment & Plan: Improved. Estimated Date of Delivery Comme nts Yes 12/17/2024 Encounters Date Type Department Care Team Description 12/06/2024 Lab Requisition [facility] [phone] Shante Partida MD from Last 3 Months [...] Comments Blood Pressure 122/72 07/23/2024 4:28 PM HOT STRIP MILL INSPECTOR Pulse 65 07/23/2024 4:28 PM HOT STRIP MILL INSPECTOR Temperature 36.8 C (98.2 F) 09/23/2023 11:41 AM CDT Respiratory Rate 16 07/23/2024 4:28 PM HOT STRIP MILL INSPECTOR Oxygen Saturation 100% 07/23/2024 4:28 PM HOT STRIP MILL INSPECTOR Inhaled Oxygen Concentration - - Weight 71.2 kg (157 lb) 07/23/2024 4:28 PM HOT STRIP MILL INSPECTOR Height 167.6 cm (5' 5.98) 07/23/2024 4:28 PM CS T Body Mass Index 25.35 07/23/2024 4:28 PM HOT STRIP MILL INSPECTOR Plan of Treatment Upcoming Encounters Date Type Department Care Team (Late st Contact Info) Description 01/11/2025 12:00 PM CDT Orders Only [facility] [address] [place] [address] 01/11/2025 1:00 PM CDT Office Visit [facility] [address] [place] [phone] Jalil Cabezas MD [address] [place] [address] Health Maintenance Due Date Last Done Comments [...] ANTI HIV 1/2 Routine 04/28/2023 10:42 AM HOT STRIP MILL INSPECTOR Encounter for screening for HIV ANTI HCV Routine 04/28/2023 10:42 AM HOT STRIP MILL INSPECTOR Need for hepatitis C screening test HPV HIGH RISK Routine 04/28/2023 10:20 AM HOT STRIP MILL INSPECTOR Pap smear for cervical cancer screening from Last 3 Months or Most Recently Relevant to Health Maintenance Results * LAB TRACKING EVENT (12/05/2024 9:45 AM CDT) Other (Other) Client Collect / Unknown 12/05/2024 9:45 AM CDT 12/06/2024 1:52 AM CDT Shante Partida MD LAB BILL ONLY Final Re sult [facility] [address] [place] [address], * PATH TISSUE EXAM PLACENTA (12/05/2024 9:45 AM CDT) Case Report Pathology Report Case: [id number] Authorizing Provider: Shante Partida MD Collected: 12/05/2024 0945 Ordering Location: [facility] Received: 12/06/2024 0759 Pathologist: Ulysses Garrison MD Specimen: Placenta 12/07/2024 4:46 PM CDT [facility]AL LABORATORY Final Diagnosis A) PLACENTA, [...] diagnostic abnormalities identified 12/07/2024 4:46 PM CDT [facility] at 1646 CDT Comment The patient's clinical history of hypertension and pre-eclampsia is noted. Some histologic features that can be associated with maternal hypertensive disorders include decidual vasculopathy, infarcts, abruption, villous maldevelopment, and small placental size. In this case, small placental size is present. 12/07/2024 4:46 PM CDT [facility] Clinical Information Indications for Placental Examination by Pathology Maternal indications: Pre-Eclampsia Infectious specimen (e.g. maternal HIV or HCV): No Clinical information: Date of delivery: 12/05/2024 Time of delivery: 944 Type of delivery: Live born:Yes Gestational age: 40.5 weeks weight of infant(s): 3360 grams Sex of infant (s): Female Pertinent Maternal History: Maternal parity: Diabetes: No Hypertension: Yes Eclampsia: No Smoking: No 12/07/2024 4:46 PM CDT [facility] Gross Description A) Received [...] parenchyma. No masses or lesions are identified. Electrical Continuity Tester sections are submitted: 1. membranes and insertion 2. Umbilical cord 3. Umbilical cord insertion site 4-5. Full-thickness central disc Time and date in formalin: 1125 on 12/06/2024 STN 12/06/2024 12/07/2024 4:46 PM CDT [facility] LAB[facility]ATORY Microscopic Description The final diagnosis is based on microscopic examination of appropriate sections of all specimens. 12/07/2024 4:46 PM CDT [facility] Additional Information Interpreted at [facility] Central Laboratory - [address], [place] [address] 12/07/2024 4:46 PM CDT [facility] Tissue SPECIMEN FROM PLACENTA / Unknown 12/05/2024 9:45 AM CDT 12/06/2024 7:59 AM CDT Shante Partida MD PATHOLOGY/CYTOLOGY Final Result Performing Organization Address [facility]/ZIP Co de Phone Number [facility] [address] [place] [address], [place] * ANTI HCV (04/28/2023 10:42 AM HOT STRIP MILL INSPECTOR) HEPATITIS C ANTIBODY Non-Reacti ve Non-React callum 04/28/2023 2:19 PM HOT STRIP MILL INSPECTOR [facility] TRAL LAB[facility]ATORY Comment:Please note, per www .CDC.gov: If a patient is known to be at high risk of HCV infection, or is symptomatic, and the physician's suspicion of HCV infection is high, HCV RNA testing is often employed and is of diagnostic value, even after an initial negative anti-HCV test result. Blood BLOOD SPECIMEN / Unknown Venipuncture / Unknown 04/28/2023 10:42 AM HOT STRIP MILL INSPECTOR 04/28/2023 10:42 AM HOT STRIP MILL INSPECTOR Apoorva Escobar DO SEND OUTS Final Result [facility] [address] [place], [place] [id number], [place] * ANTI HIV 1/2 (04/28/2023 10:42 AM HOT STRIP MILL INSPECTOR) HIV-1/HIV-2 SCREEN Non-Reacti ve Non-Reacti ve 04/28/2023 2:22 PM HOT STRIP MILL INSPECTOR [facility] TR[facility] Comment:HIV-1 p24 and HIV-1/ HIV-2 Ab Not Detected. Blood BLOOD SPECIMEN / Unknown Venipuncture / Unknown 04/28/2023 10:42 AM HOT STRIP MILL INSPECTOR 04/28/2023 10:42 AM HOT STRIP MILL INSPECTOR Apoorva Escobar DO SEND OUTS Final Result Performing Organization Address [facility] [[email or web address]] Co de Phone Number [facility] [address] * HPV HIGH RISK (04/28/2023 10:20 AM HOT STRIP MILL INSPECTOR) TYPE 16 Negative Negative 05/04/2023 11:11 AM HOT STRIP MILL INSPECTOR [facility] TR[facility] LAB[facility]ATORY TYPE 18 Negative Negative 05/04/2023 11:11 AM HOT STRIP MILL INSPECTOR [facility] TR[facility] LABORATORY OTHER HIGH RISK TYPES Negative Negative 05/04/2023 11:11 AM HOT STRIP MILL INSPECTOR [facility] TR[facility] Other (Cervical) Non-Blood / Unknown 04/28/2023 10:20 AM HOT STRIP MILL INSPECTOR 04/29/2023 10:05 AM HOT STRIP MILL INSPECTOR Narrative [facility] - 05/04/2023 11:11 AM HOT STRIP MILL INSPECTOR HPV types 16, 18, 31, 33, 35, 39, 45, 51, 52, 56, 58, 59, 66 and 68 DNA were undetectable or below the pre-set threshold. Methodology: Mili Mgean 4800 HPV Test Apoorva Escobar DO MICROBIOLOGY Final Result Performing Organization Address [facility] de Phone Number [facility] [address] from Last 3 Months or Most Recently Relevant to Health Maintenance Insurance [facility] Care Teams Studio Technician Relationship Specialty Start Date End Date Apoorva Escobar DO [address] [place] [address] PCP - General Family Practice 03/23/22 Manas Joseph DO [address] [place] [address] Endocrinology 09/09/22
--- OUTSIDE RECORDS SUMMARY | 2024-12-18 02:24 | XMS_ITS | Encounter Summary ---
Author Organization [facility] Address [address] [facility] [place] [address] Care Team Providers Care Dentofacial Orthopedics Dentist Name Role Phone Gladys Lucas MD Primary Care Provider [phone] Catherine Keith MD Unavailable [phone] Encounter Details Date Type Department Care [...] on file Legal Sex Female 5:04 AM BILINGUAL SCHOOL PSYCHOLOGIST Gender Identity Not on file Sexual Orientation Not on file documented as of this encounter Plan of Treatment Not on file documented as of this encounter Visit Diagnoses Not on filedocumented in this encounter Care Teams Dentofacial Orthopedics Dentist Relationship Specialty Start Date End Date Gladys Lucas MD PCP - General 12/04/10 Catherine Keith MD [address] [address] Assigned OBGYN Provider 07/12/24 documented as of this encounter
--- OUTSIDE RECORDS SUMMARY | 2024-12-18 02:24 | XMS_ITS | Encounter Summary ---
Author Organization [facility] Address [address] [facility] [place] [address] Care Team Providers Care Mental Measurements Teacher Name Role Phone Gladys Lucas MD Primary Care Provider [phone] Catherine Keith MD Unavailable [phone] Encounter Details Date Type Department Care [...] on file Legal Sex Female 5:04 AM TERRAZZO POLISHER Gender Identity Not on file Sexual Orientation Not on file documented as of this encounter Plan of Treatment Not on file documented as of this encounter Visit Diagnoses Not on filedocumented in this encounter Care Teams Mental Measurements Teacher Relationship Specialty Start Date End Date Gladys Lucas MD PCP - General 12/04/10 Catherine Keith MD [address] [address] Assigned OBGYN Provider 07/12/24 documented as of this encounter
--- OUTSIDE RECORDS SUMMARY | 2024-12-18 02:24 | XMS_ITS | Patient Health Record ---
Author Organization [place] [employer] Address [address] [place] [address] Care Team Providers Care Catalog Library Assistant Name Role Phone Rogerio Pandya Primary Care Provider [phone] Allergies No Known Allergies Reason For Referral [...] Problem Status W/U Status Risk Notes Problem [id number] History of Graves' disease (Z86.39) Active confirmed Problem [id number] Chronic fatigue (R53.82) Active confirmed Plan Of Treatment No Information Insurance Providers Payer Name Payer Address Payer Phone Subscriber Number Group Number Insured Name Patient Relationship to Insured Coverage Start Date Coverage End Date [employer] (PayerI D [id number]) (Ins. Bill) [address] [place], [place] [id number] IFB Felisha May Self - patient is the insured 2 Medical (General) History Medical History History ICD Code Depression/ Anxiety thyroid condition arthritis
== END 2024-12-17 13:14 | disposition home or self-care (01) ==
PROVIDERS: Visit Provider Obstetrics & Gynecology
DX: Z39.1 Encounter for care and examination of lactating mother (principal)
CPT/HCPCS: G0463